=== PATIENT | male | born 1975 | race Caucasian/White ===

== ENCOUNTER 2020-02-18 08:25 | Outpatient (REF) | payer OTHER, SELFPAY ==
[2020-02-18 09:18] LABS: MANUAL DIFF FLAG NO
[2020-02-18 09:33] LABS: Basophils Absolute Auto 0.1 X10*3/uL (0.0-0.2); Basophils Percent Auto 0.6 % (0-2); Eosinophils Absolute Auto 0.2 X10*3/uL (0.0-0.4); Eosinophils Percent Auto 2.7 % (0-4); Hematocrit 47.9 % (42-52); Hemoglobin 16.2 g/dl (14.0-18.0); Imm Gran Abs Auto 0.01 X10*3/uL (0.00-0.03); Imm Gran Pct Auto 0.1 % (0.0-0.4); Lymphocytes Absolute Auto 3.5 X10*3/uL (1.2-4.9); Lymphocytes Percent Auto 44.7 % (20-40); Mean Corpuscular HGB Conc 33.8 g/dl (31.0-36.0); Mean Corpuscular Hemoglobin 29.5 pg (27.0-33.0); Mean Corpuscular Volume 87.1 fL (80-98); Mean Platelet Volume 10.2 fL (9.4-12.4); Monocytes Absolute Auto 0.7 X10*3/uL (0.1-1.2); Neutrophils Absolute Auto 3.4 X10*3/uL (2.0-8.3); Neutrophils Percent Auto 42.9 % (45-73); Platelet Count 203 X10*3/uL (160-400); Red Cell Distribution Width 12.3 % (11.0-16.0); White Blood Count 7.9 X10*3/uL (4.8-10.8)
[2020-02-18 09:43] LABS: Estimated Average Glucose 123 mg/dL; Hemoglobin A1c % 5.9 %
[2020-02-18 09:46] LABS: Alanine Aminotransferase 46 U/L (0-40); Albumin Level 4.3 g/dL (3.5-5.0); Alkaline Phosphatase 60 U/L (39-117); Anion Gap 11 (12-20); Aspartate Amino Transferase 27 U/L (5-37); Bilirubin Total 0.5 mg/dL (0.0-1.0); Blood Urea Nitrogen 13 mg/dL (9-16); C Reactive Protein 0.14 mg/dL (< or = 0.50); Calcium 8.9 mg/dL (8.4-10.2); Carbon Dioxide 28 mmol/L (22-29); Chloride 104 mmol/L (96-108); Cholesterol 212 mg/dL; Estimated Glomerular Filt Rate > 60; Glucose Fasting 109 mg/dL (60-99); HDL Cholesterol 43 mg/dL; LDL Cholesterol Calculated 145 mg/dl; Potassium 4.4 mmol/l (3.3-5.1); Sodium 139 mmol/L (135-145); Total Protein 7.5 g/dL (6.5-8.0); Triglycerides 122 mg/dL
[2020-02-18 10:07] LABS: TSH reflex Free T4 1.12 mIU/mL (0.32-4.0); Vitamin D 25-OH Total 60.8 ng/mL (>30)
== END 2020-02-18 08:26 | disposition home or self-care (01) ==
LOC: HO.LAB 08:25
PROVIDERS: PCP Internal Medicine; Visit Provider Internal Medicine
DX: E78.00 Pure hypercholesterolemia, unspecified (principal); R79.89 Other specified abnormal findings of blood chemistry; R73.01 Impaired fasting glucose; M47.817 Spondylosis without myelopathy or radiculopathy, lumbosacral region; G47.00 Insomnia, unspecified; E55.9 Vitamin D deficiency, unspecified; E66.9 Obesity, unspecified
CPT/HCPCS: 36415; 80053; 80061; 82306; 83036; 84443; 85025; 86140

== ENCOUNTER 2020-05-15 09:04 | Outpatient (REF) | payer OTHER, SELFPAY | END 2020-05-15 09:05 | disposition home or self-care (01) | LOC: HO.LAB 09:04 | PROVIDERS: Visit Provider Internal Medicine | DX: Z20.822 Contact with and (suspected) exposure to COVID-19 (principal) | CPT/HCPCS: 36415; C9803; U0003; U0005 ==

== ENCOUNTER 2020-05-18 08:31 | Outpatient (REF) | payer OTHER, SELFPAY ==
[2020-05-18 09:15] LABS: Estimated Average Glucose 120 mg/dL; Hemoglobin A1c % 5.8 %
[2020-05-18 09:23] LABS: Alanine Aminotransferase 46 U/L (0-40); Albumin Level 4.4 g/dL (3.5-5.0); Alkaline Phosphatase 59 U/L (39-117); Anion Gap 11 (12-20); Aspartate Amino Transferase 26 U/L (5-37); Bilirubin Total 0.6 mg/dL (0.0-1.0); Blood Urea Nitrogen 16 mg/dL (9-16); Calcium 8.9 mg/dL (8.4-10.2); Carbon Dioxide 26 mmol/L (22-29); Chloride 104 mmol/L (96-108); Cholesterol 185 mg/dL; Estimated Glomerular Filt Rate > 60; Glucose Fasting 111 mg/dL (60-99); HDL Cholesterol 40 mg/dL; LDL Cholesterol Calculated 126 mg/dl; Potassium 4.3 mmol/L (3.3-5.1); Sodium 137 mmol/L (135-145); Total Protein 7.3 g/dL (6.5-8.0); Triglycerides 99 mg/dL
[2020-05-18 09:36] LABS: TSH reflex Free T4 1.03 uIU/mL (0.32-4.0); Vitamin D 25-OH Total 59.2 ng/mL (>30)
== END 2020-05-18 08:32 | disposition home or self-care (01) ==
LOC: HO.LAB 08:31
PROVIDERS: PCP Internal Medicine; Visit Provider Internal Medicine
DX: E55.9 Vitamin D deficiency, unspecified (principal); E78.00 Pure hypercholesterolemia, unspecified; R73.01 Impaired fasting glucose; E66.9 Obesity, unspecified; R79.89 Other specified abnormal findings of blood chemistry
CPT/HCPCS: 36415; 80053; 80061; 82306; 83036; 84443

== ENCOUNTER 2020-05-24 22:10 | Emergency (ER) | payer OTHER, SELFPAY ==
[2020-05-24 22:46] VITALS: BP 138/81; PULSE 78; RESP 18; TEMP 37; O2SAT 98; BMI 30.4
--- NOTE | 2020-05-24 22:48 | ED_ITS ---
HPI - Dental/Oral General Chief complaint: Dental/Oral Stated complaint: TOOTH ACHE Time Seen by Provider: 05/24/20 22:39 Source: patient Mode of arrival: ambulatory Limitations: no limitations History of Present Illness HPI Narrative: Patient's history of dental caries status post crown placement years ago was flossing his teeth 2 days ago since then complaining of pain especially on the left lower 1st molar Complaint: tooth pain Location: Tooth # (19) Teeth map: 1. Tender 1st premolar with significant grinding of the teeth crown is in place no gum swelling Onset (ago): day(s) Severity: mild Context: history of dental caries Related Data Home Medications Medication Instructions Recorded Confirmed gabapentin 300 mg capsule 300 mg PO DAILY PRN 02/26/20 02/26/20 Previous Rx's Medication Instructions Recorded amoxicillin-pot clavulanate 1 tab PO BID #20 tab 05/24/20 [Augmentin] tramadol 50 mg PO Q6H PRN #20 tab 05/24/20 Allergies Allergy/AdvReac Type Severity Reaction Status Date / Time penicillin V Allergy Unknown seizures, Verified 05/24/20 22:46 seizure-in childhood Penicillins [PENICILLINS] Allergy Unknown SEIZURE Verified 05/24/20 22:46 Review of Systems Review of Systems: Yes all other systems are reviewed and are negative PMFSH Past Medical History Medical History Cannabis withdrawal Elevated LFTs Facet arthritis of lumbar region Impaired fasting glucose Insomnia Lumbar degenerative disc disease Obesity (BMI 30-39.9) Pure hypercholesterolemia Vitamin D deficiency Surgical History History of appendectomy History of hand surgery History of hemilaminectomy History of hemorrhoidectomy Family History Family History Father Hypertension Heart disease Mother Hypertension Diabetes Maternal Grandfather Leukemia Social History Social History Alcohol intake: current Alcohol intake frequency: holidays/special occasions only Smoking Status: Never smoker Use of substances other than those prescribed or required for medical reasons: Yes Substance Use Type: Marijuana Advance Directives: No Physical Exam Vital Signs: Vital Signs: Last Vital Signs Temp 98.6 F 05/24/20 22:46 Pulse 78 05/24/20 22:46 Resp 18 05/24/20 22:46 BP 138/81 05/24/20 22:46 Pulse Ox 98 05/24/20 22:46 Body Mass Index 30.4 Const: General: comfortable and no acute distress Orientation/consciousness: patient oriented x3 HENMT: Head: Yes normocephalic and Yes atraumatic Ears: TM's normal bila terally Face and sinus: Yes normal facial exam Mouth: Normal oral and palatal mucosa present Teeth and gingiva: gingiva normal, bridge, caries (tooth 19 tender to touch ) and fair dentition Resp: Auscultation: clear to auscultation bilaterally Neuro: General: patient oriented x3 MDM - Dental/Oral MDM Narrative Medical decision making narrative: Patient with uncomplicated dental caries would give him Augmentin which he can take although he is allergic to penicillin, tramadol for pain advised to follow-up with dentist Discharge Plan Discharge Clinical Impression: Dental caries Patient Disposition: Home, Self-Care Instructions: Toothache (ED) Additional Instructions: Follow with dentist. Take antibiotic as advised and pain medication , apply locally Orajel Prescriptions: New tramadol 50 mg tablet 50 mg PO Q6H PRN (Reason: pain) Qty: 20 RF: 0 amoxicillin-pot clavulanate [Augmentin] 875-125 mg tablet 1 tab PO BID Qty: 20 RF: 0 No Action gabapentin 300 mg capsule 300 mg PO DAILY PRNRF: 0
[2020-05-24] MEDS: traMADoL HCL 50 MG TABLET 100 MG PO (23:07)
[2020-05-24] MEDS: Amoxicillin/Potassium Clav 875 MG TABLET PO (23:07)
== END 2020-05-24 23:26 | disposition home or self-care (01) ==
PROVIDERS: Emergency Provider Internal Medicine; PCP Internal Medicine
DX: K02.9 Dental caries, unspecified (principal); K08.89 Other specified disorders of teeth and supporting structures; F12.90 Cannabis use, unspecified, uncomplicated
CPT/HCPCS: 99283; 99284

== ENCOUNTER 2020-09-15 07:38 | Outpatient (REF) | payer OTHER, SELFPAY ==
[2020-09-15 09:24] LABS: Estimated Average Glucose 123 mg/dL; Hemoglobin A1c % 5.9 %
== END 2020-09-15 07:39 | disposition home or self-care (01) ==
LOC: HO.LAB 07:38
PROVIDERS: PCP Internal Medicine; Visit Provider Internal Medicine
DX: R73.01 Impaired fasting glucose (principal)
CPT/HCPCS: 36415; 83036

== ENCOUNTER 2021-05-04 08:00 | Outpatient (REF) | payer OTHER, SELFPAY ==
[2021-05-04 08:13] LABS: MANUAL DIFF FLAG NO
[2021-05-04 08:31] LABS: Basophils Percent Auto 0.6 % (0-2); Eosinophils Absolute Auto 0.2 X10*3/uL (0.0-0.4); Eosinophils Percent Auto 2.8 % (0-4); Hematocrit 49.3 % (42.0-52.0); Hemoglobin 16.5 g/dl (14.0-18.0); Imm Gran Abs Auto 0.02 X10*3/uL (0.00-0.03); Imm Gran Pct Auto 0.3 % (0.0-0.4); Lymphocytes Absolute Auto 2.9 X10*3/uL (1.2-4.9); Lymphocytes Percent Auto 40.6 % (20-40); Mean Corpuscular HGB Conc 33.5 g/dl (31.0-36.0); Mean Corpuscular Hemoglobin 29.7 pg (27.0-33.0); Mean Corpuscular Volume 88.8 fL (80.0-98.0); Mean Platelet Volume 10.3 fL (9.4-12.4); Monocytes Absolute Auto 0.5 X10*3/uL (0.1-1.2); Monocytes Percent Auto 7.4 % (2-11); Neutrophils Absolute Auto 3.5 x10*3/uL (2.0-8.3); Neutrophils Percent Auto 48.3 % (45-73); Platelet Count 186 X10*3/uL (160-400); Red Blood Count 5.55 X10*6/uL (4.60-5.80); Red Cell Distribution Width 12.6 % (11.0-16.0); White Blood Count 7.2 X10*3/uL (4.8-10.8)
[2021-05-04 08:43] LABS: Estimated Average Glucose 123 mg/dL; Hemoglobin A1c % 5.9 %
[2021-05-04 09:07] LABS: Alanine Aminotransferase 36 U/L (0-40); Albumin Level 4.5 g/dL (3.5-5.0); Alkaline Phosphatase 55 U/L (39-117); Anion Gap 12 (12-20); Aspartate Amino Transferase 26 U/L (5-37); Bilirubin Total 0.7 mg/dL (0.0-1.0); Blood Urea Nitrogen 15 mg/dL (9-16); Calcium 9.9 mg/dL (8.4-10.2); Carbon Dioxide 29 mmol/L (22-29); Chloride 102 mmol/L (96-108); Cholesterol 243 mg/dL; Estimated Glomerular Filt Rate > 60; Glucose Fasting 106 mg/dL (60-99); HDL Cholesterol 48 mg/dL; LDL Cholesterol Calculated 168 mg/dl; Potassium 4.6 mmol/L (3.3-5.1); Sodium 138 mmol/L (135-145); Total Protein 7.9 g/dL (6.5-8.0); Triglycerides 139 mg/dL
[2021-05-04 09:30] LABS: TSH reflex Free T4 0.93 uIU/mL (0.32-4.0); Vitamin D 25-OH Total 78.4 ng/mL (>30)
[2021-05-04 09:32] LABS: Appearance Urine CLEAR; Color Urine YELLOW; Glucose Urine UA NEG (NEG); Leukocyte Esterase Urine NEG (NEG); Nitrite Urine NEG (NEG); Specific Gravity - Urine 1.025 (1.005-1.025); UACC Culture Trigger NO; Urine Blood TRACE (NEG); Urine Ketones NEG (NEG); Urine Protein NEG (NEG-TRACE)
[2021-05-04 09:49] LABS: RBC Urine 0-2 /HPF (0); WBC Urine 0 /HPF (0-4)
== END 2021-05-04 08:01 | disposition home or self-care (01) ==
LOC: HO.LAB 08:00
PROVIDERS: PCP Internal Medicine; Visit Provider Internal Medicine
DX: E55.9 Vitamin D deficiency, unspecified (principal); E78.00 Pure hypercholesterolemia, unspecified; I10 Essential (primary) hypertension; R73.01 Impaired fasting glucose
CPT/HCPCS: 36415; 80053; 80061; 81001; 82306; 83036; 84443; 85025

== ENCOUNTER 2021-08-05 07:57 | Outpatient (REF) | payer OTHER, SELFPAY ==
[2021-08-05 08:23] LABS: MANUAL DIFF FLAG NO
[2021-08-05 08:34] LABS: Basophils Percent Auto 0.5 % (0-2); Eosinophils Absolute Auto 0.1 X10*3/uL (0.0-0.4); Eosinophils Percent Auto 1.9 % (0-4); Hematocrit 47.3 % (42.0-52.0); Hemoglobin 16.1 g/dl (14.0-18.0); Imm Gran Abs Auto 0.02 X10*3/uL (0.00-0.03); Imm Gran Pct Auto 0.3 % (0.0-0.4); Lymphocytes Percent Auto 40.7 % (20-40); Mean Corpuscular Volume 88.2 fL (80.0-98.0); Monocytes Absolute Auto 0.5 X10*3/uL (0.1-1.2); Monocytes Percent Auto 7.4 % (2-11); Neutrophils Absolute Auto 3.6 x10*3/uL (2.0-8.3); Neutrophils Percent Auto 49.2 % (45-73); Platelet Count 184 X10*3/uL (160-400); Red Blood Count 5.36 X10*6/uL (4.60-5.80); Red Cell Distribution Width 12.5 % (11.0-16.0); White Blood Count 7.3 X10*3/uL (4.8-10.8)
[2021-08-05 08:43] LABS: Estimated Average Glucose 120 mg/dL; Hemoglobin A1c % 5.8 %
[2021-08-05 08:58] LABS: Alanine Aminotransferase 38 U/L (0-40); Albumin Level 4.3 g/dL (3.5-5.0); Alkaline Phosphatase 52 U/L (39-117); Anion Gap 11 (12-20); Aspartate Amino Transferase 25 U/L (5-37); Bilirubin Total 0.4 mg/dL (0.0-1.0); Blood Urea Nitrogen 12 mg/dL (9-16); Calcium 9.5 mg/dL (8.4-10.2); Carbon Dioxide 27 mmol/L (22-29); Chloride 104 mmol/L (96-108); Cholesterol 208 mg/dL; Estimated Glomerular Filt Rate > 60; Glucose Fasting 110 mg/dL (60-99); HDL Cholesterol 47 mg/dL; LDL Cholesterol Calculated 146 mg/dl; Potassium 4.7 mmol/L (3.3-5.1); Sodium 137 mmol/L (135-145); Total Protein 7.5 g/dL (6.5-8.0); Triglycerides 76 mg/dL
[2021-08-05 09:21] LABS: TSH reflex Free T4 0.84 uIU/mL (0.32-4.0); Vitamin D 25-OH Total 68.4 ng/mL (>30)
[2021-08-05 10:17] LABS: Appearance Urine HAZY; Color Urine YELLOW; Glucose Urine UA NEG (NEG); Leukocyte Esterase Urine NEG (NEG); Nitrite Urine NEG (NEG); Specific Gravity - Urine 1.025 (1.005-1.025); Urine Blood NEG (NEG); Urine Ketones NEG (NEG); Urine Protein NEG (NEG-TRACE)
== END 2021-08-05 07:58 | disposition home or self-care (01) ==
LOC: HO.LAB 07:57
PROVIDERS: PCP Internal Medicine; Visit Provider Internal Medicine
DX: E78.00 Pure hypercholesterolemia, unspecified (principal); I10 Essential (primary) hypertension; E55.9 Vitamin D deficiency, unspecified; R73.01 Impaired fasting glucose
CPT/HCPCS: 36415; 80053; 80061; 81003; 82306; 83036; 84443; 85025

== ENCOUNTER 2021-11-29 08:30 | Outpatient (REF) | payer OTHER, SELFPAY ==
[2021-11-29 08:40] LABS: MANUAL DIFF FLAG NO
[2021-11-29 09:12] LABS: Basophils Absolute Auto 0.1 X10*3/uL (0.0-0.2); Basophils Percent Auto 0.9 % (0-2); Eosinophils Absolute Auto 0.2 X10*3/uL (0.0-0.4); Eosinophils Percent Auto 2.7 % (0-4); Hematocrit 47.3 % (42.0-52.0); Hemoglobin 15.7 g/dl (14.0-18.0); Imm Gran Abs Auto 0.02 X10*3/uL (0.00-0.03); Imm Gran Pct Auto 0.3 % (0.0-0.4); Lymphocytes Absolute Auto 2.7 X10*3/uL (1.2-4.9); Lymphocytes Percent Auto 41.1 % (20-40); Mean Corpuscular HGB Conc 33.2 g/dl (31.0-36.0); Mean Corpuscular Hemoglobin 29.4 pg (27.0-33.0); Mean Corpuscular Volume 88.6 fL (80.0-98.0); Mean Platelet Volume 10.4 fL (9.4-12.4); Monocytes Absolute Auto 0.7 X10*3/uL (0.1-1.2); Platelet Count 154 X10*3/uL (160-400); Red Blood Count 5.34 X10*6/uL (4.60-5.80); Red Cell Distribution Width 12.8 % (11.0-16.0); White Blood Count 6.6 X10*3/uL (4.8-10.8)
[2021-11-29 09:18] LABS: Estimated Average Glucose 117 mg/dL; Hemoglobin A1C 155.3739 umol/L; Hemoglobin A1c % 5.7 %
[2021-11-29 09:35] LABS: Appearance Urine Clear; Color Urine Yellow; Glucose Urine UA Negative (Negative); Leukocyte Esterase Urine Negative (Negative); Nitrite Urine Negative (Negative); Specific Gravity - Urine 1.025 (1.005-1.025); Urine Blood Negative (Negative); Urine Ketones Negative (Negative); Urine Protein Negative (Neg-Trace)
[2021-11-29 09:45] LABS: Alanine Aminotransferase 34 U/L (0-40); Albumin Level 4.4 g/dL (3.5-5.0); Alkaline Phosphatase 51 U/L (39-117); Anion Gap 15 (12-20); Aspartate Amino Transferase 23 U/L (5-37); Bilirubin Total 0.3 mg/dL (0.0-1.0); Blood Urea Nitrogen 15 mg/dL (9-16); Calcium 9.2 mg/dL (8.4-10.2); Carbon Dioxide 26 mmol/L (22-29); Chloride 105 mmol/L (96-108); Cholesterol 206 mg/dL; Estimated Glomerular Filt Rate > 60; Glucose Fasting 98 mg/dL (60-99); HDL Cholesterol 46 mg/dL; LDL Cholesterol Calculated 145 mg/dl; Potassium 4.9 mmol/L (3.3-5.1); Sodium 141 mmol/L (135-145); Total Protein 7.3 g/dL (6.5-8.0); Triglycerides 75 mg/dL
[2021-11-29 09:58] LABS: TSH reflex Free T4 0.82 uIU/mL (0.32-4.0)
[2021-11-29 09:59] LABS: Creatinine Urine 193.64 mg/dL
== END 2021-11-29 08:31 | disposition home or self-care (01) ==
LOC: HO.LAB 08:30
PROVIDERS: PCP Internal Medicine; Visit Provider Internal Medicine
DX: E55.9 Vitamin D deficiency, unspecified (principal); I10 Essential (primary) hypertension; E78.00 Pure hypercholesterolemia, unspecified; E11.9 Type 2 diabetes mellitus without complications
CPT/HCPCS: 36415; 80053; 80061; 81003; 82043; 82306; 83036; 84443; 85025

== ENCOUNTER 2022-02-21 07:45 | Outpatient (REF) | payer OTHER, SELFPAY ==
[2022-02-21 07:53] LABS: MANUAL DIFF FLAG NO
[2022-02-21 08:19] LABS: Basophils Absolute Auto 0.1 X10*3/uL (0.0-0.2); Basophils Percent Auto 0.9 % (0-2); Eosinophils Absolute Auto 0.2 X10*3/uL (0.0-0.4); Eosinophils Percent Auto 2.1 % (0-4); Hematocrit 48.1 % (42.0-52.0); Imm Gran Abs Auto 0.03 X10*3/uL (0.00-0.03); Imm Gran Pct Auto 0.4 % (0.0-0.4); Lymphocytes Percent Auto 39.7 % (20-40); Mean Corpuscular HGB Conc 33.3 g/dl (31.0-36.0); Mean Corpuscular Hemoglobin 29.4 pg (27.0-33.0); Mean Corpuscular Volume 88.3 fL (80.0-98.0); Mean Platelet Volume 10.4 fL (9.4-12.4); Monocytes Absolute Auto 0.5 X10*3/uL (0.1-1.2); Monocytes Percent Auto 6.7 % (2-11); Neutrophils Absolute Auto 3.8 x10*3/uL (2.0-8.3); Neutrophils Percent Auto 50.2 % (45-73); Platelet Count 205 X10*3/uL (160-400); Red Blood Count 5.45 X10*6/uL (4.60-5.80); Red Cell Distribution Width 12.4 % (11.0-16.0); White Blood Count 7.6 X10*3/uL (4.8-10.8)
[2022-02-21 09:33] LABS: Alanine Aminotransferase 29 U/L (0-40); Albumin Level 4.4 g/dL (3.5-5.0); Alkaline Phosphatase 58 U/L (39-117); Anion Gap 12 (12-20); Aspartate Amino Transferase 21 U/L (5-37); Bilirubin Total 0.5 mg/dL (0.0-1.0); Blood Urea Nitrogen 13 mg/dL (9-16); Calcium 9.3 mg/dL (8.4-10.2); Carbon Dioxide 28 mmol/L (22-29); Chloride 104 mmol/L (96-108); Cholesterol 200 mg/dL; Estimated Glomerular Filt Rate > 60; Glucose Fasting 104 mg/dL (60-99); HDL Cholesterol 46 mg/dL; LDL Cholesterol Calculated 140 mg/dl; Potassium 4.4 mmol/L (3.3-5.1); Sodium 140 mmol/L (135-145); TSH reflex Free T4 0.78 uIU/mL (0.32-4.0); Total Protein 7.4 g/dL (6.5-8.0); Triglycerides 72 mg/dL; Vitamin D 25-OH Total 53.9 ng/mL (>30)
== END 2022-02-21 07:46 | disposition home or self-care (01) ==
LOC: HO.LAB 07:45
PROVIDERS: PCP Internal Medicine; Visit Provider Internal Medicine
DX: E78.00 Pure hypercholesterolemia, unspecified (principal); E55.9 Vitamin D deficiency, unspecified; I10 Essential (primary) hypertension
CPT/HCPCS: 36415; 80053; 80061; 82306; 84443; 85025

== ENCOUNTER 2022-06-02 07:03 | Outpatient (REF) | payer OTHER, SELFPAY ==
[2022-06-02 07:11] LABS: MANUAL DIFF FLAG NO
[2022-06-02 07:27] LABS: Appearance Urine Clear; Color Urine Yellow; Glucose Urine UA Negative (Negative); Leukocyte Esterase Urine Negative (Negative); Nitrite Urine Negative (Negative); Urine Blood Negative (Negative); Urine Ketones Negative (Negative); Urine Protein Negative (Neg-Trace)
[2022-06-02 07:30] LABS: Basophils Percent Auto 0.6 % (0-2); Eosinophils Absolute Auto 0.2 X10*3/uL (0.0-0.4); Eosinophils Percent Auto 2.1 % (0-4); Hematocrit 45.9 % (42.0-52.0); Hemoglobin 15.7 g/dl (14.0-18.0); Imm Gran Abs Auto 0.02 X10*3/uL (0.00-0.03); Imm Gran Pct Auto 0.3 % (0.0-0.4); Lymphocytes Absolute Auto 3.1 X10*3/uL (1.2-4.9); Lymphocytes Percent Auto 43.3 % (20-40); Mean Corpuscular HGB Conc 34.2 g/dl (31.0-36.0); Mean Corpuscular Hemoglobin 30.1 pg (27.0-33.0); Mean Corpuscular Volume 87.9 fL (80.0-98.0); Monocytes Absolute Auto 0.6 X10*3/uL (0.1-1.2); Neutrophils Absolute Auto 3.3 x10*3/uL (2.0-8.3); Neutrophils Percent Auto 45.7 % (45-73); Platelet Count 180 X10*3/uL (160-400); Red Blood Count 5.22 X10*6/uL (4.60-5.80); Red Cell Distribution Width 12.4 % (11.0-16.0); White Blood Count 7.2 X10*3/uL (4.8-10.8)
[2022-06-02 07:36] LABS: Estimated Average Glucose 117 mg/dL; Hemoglobin A1c % 5.7 %
[2022-06-02 07:54] LABS: Alanine Aminotransferase 28 U/L (0-40); Albumin Level 4.3 g/dL (3.5-5.0); Alkaline Phosphatase 50 U/L (39-117); Anion Gap 12 (12-20); Aspartate Amino Transferase 23 U/L (5-37); Bilirubin Total 0.5 mg/dL (0.0-1.0); Blood Urea Nitrogen 17 mg/dL (9-16); Carbon Dioxide 28 mmol/L (22-29); Chloride 103 mmol/L (96-108); Cholesterol 187 mg/dL; Estimated Glomerular Filt Rate > 60; Glucose Fasting 96 mg/dL (60-99); HDL Cholesterol 44 mg/dL; LDL Cholesterol Calculated 129 mg/dl; Potassium 4.3 mmol/L (3.3-5.1); Sodium 139 mmol/L (135-145); Triglycerides 70 mg/dL
[2022-06-02 08:08] LABS: TSH reflex Free T4 0.93 uIU/mL (0.32-4.0); Vitamin D 25-OH Total 55.6 ng/mL (>30)
== END 2022-06-02 07:04 | disposition home or self-care (01) ==
LOC: HO.LAB 07:03
PROVIDERS: PCP Internal Medicine; Visit Provider Internal Medicine
DX: E78.00 Pure hypercholesterolemia, unspecified (principal); R73.01 Impaired fasting glucose; E55.9 Vitamin D deficiency, unspecified; R30.0 Dysuria; I10 Essential (primary) hypertension
CPT/HCPCS: 36415; 80053; 80061; 81003; 82306; 83036; 84443; 85025

== ENCOUNTER 2022-09-30 06:54 | Outpatient (REF) | payer OTHER, SELFPAY ==
[2022-09-30 07:19] LABS: MANUAL DIFF FLAG NO
[2022-09-30 07:34] LABS: Basophils Absolute Auto 0.1 X10*3/uL (0.0-0.2); Basophils Percent Auto 0.7 % (0-2); Eosinophils Absolute Auto 0.1 X10*3/uL (0.0-0.4); Eosinophils Percent Auto 1.3 % (0-4); Hematocrit 47.8 % (42.0-52.0); Imm Gran Abs Auto 0.02 X10*3/uL (0.00-0.03); Imm Gran Pct Auto 0.3 % (0.0-0.4); Lymphocytes Absolute Auto 2.6 X10*3/uL (1.2-4.9); Lymphocytes Percent Auto 37.5 % (20-40); Mean Corpuscular HGB Conc 33.5 g/dl (31.0-36.0); Mean Corpuscular Hemoglobin 29.7 pg (27.0-33.0); Mean Corpuscular Volume 88.8 fL (80.0-98.0); Mean Platelet Volume 9.8 fL (9.4-12.4); Monocytes Absolute Auto 0.5 X10*3/uL (0.1-1.2); Monocytes Percent Auto 7.2 % (2-11); Neutrophils Absolute Auto 3.7 x10*3/uL (2.0-8.3); Platelet Count 203 X10*3/uL (160-400); Red Blood Count 5.38 X10*6/uL (4.60-5.80); Red Cell Distribution Width 12.4 % (11.0-16.0); White Blood Count 6.9 X10*3/uL (4.8-10.8)
[2022-09-30 07:45] LABS: Estimated Average Glucose 108 mg/dL; Hemoglobin A1c % 5.4 %
[2022-09-30 08:25] LABS: Appearance Urine Clear; Color Urine Yellow; Glucose Urine UA Negative (Negative); Leukocyte Esterase Urine Negative (Negative); Nitrite Urine Negative (Negative); Specific Gravity - Urine 1.015 (1.005-1.025); Urine Blood Negative (Negative); Urine Ketones Negative (Negative); Urine Protein Negative (Neg-Trace)
[2022-09-30 08:34] LABS: Alanine Aminotransferase 29 U/L (0-40); Albumin Level 4.2 g/dL (3.5-5.0); Alkaline Phosphatase 54 U/L (39-117); Anion Gap 15 (12-20); Aspartate Amino Transferase 22 U/L (5-37); Bilirubin Total 0.5 mg/dL (0.0-1.0); Blood Urea Nitrogen 12 mg/dL (9-16); Calcium 9.4 mg/dL (8.4-10.2); Carbon Dioxide 24 mmol/L (22-29); Chloride 102 mmol/L (96-108); Cholesterol 196 mg/dL; Estimated Glomerular Filt Rate > 60; Glucose Fasting 109 mg/dL (60-99); HDL Cholesterol 46 mg/dL; LDL Cholesterol Calculated 127 mg/dl; Potassium 4.3 mmol/L (3.3-5.1); Sodium 137 mmol/L (135-145); Total Protein 7.5 g/dL (6.5-8.0); Triglycerides 116 mg/dL
[2022-09-30 08:37] LABS: Vitamin D 25-OH Total 61.9 ng/mL (>30)
== END 2022-09-30 06:55 | disposition home or self-care (01) ==
LOC: HO.LAB 06:54
PROVIDERS: PCP Internal Medicine; Visit Provider Internal Medicine
DX: I10 Essential (primary) hypertension (principal); E78.00 Pure hypercholesterolemia, unspecified; R79.89 Other specified abnormal findings of blood chemistry; R73.01 Impaired fasting glucose; R30.0 Dysuria; E55.9 Vitamin D deficiency, unspecified
CPT/HCPCS: 36415; 80053; 80061; 81003; 82306; 83036; 85025

== ENCOUNTER 2022-10-07 09:13 | Outpatient (AMB) | payer OTHER, SELFPAY ==
--- NOTE | 2022-10-07 09:14 | A.OFFPC_ITS ---
Vital Signs 10/07/22 09:15 Height 5 ft 8 in Weight 198 lb 4 oz BMI 30.1 BP 122/80 Blood Pressure Location Lt brachial Position Sitting Pulse 80 Pulse Source Pulse Oximeter Pulse Oximetry (%) 97 Oxygen Delivery Method Room Air Intake Visit Reasons: hyperlipidemia, IFG, lumbar DDD Warp Yarn Sorter Required: No Accompanied by: Self / Same As Patient Allergies penicillin V Allergy (Unknown, Verified 10/07/22 10:01) seizures, seizure-in childhood Penicillins [PENICILLINS] Allergy (Unknown, Verified 10/07/22 10:01) SEIZURE Medication List - Last Reconciled 10/07/22 by Johnnie Miller MD baclofen 20 mg PO BEDTIME 90 days gabapentin 300 mg PO BEDTIME 90 days tramadol 50 mg PO Q6H PRN Tobacco use date assessed: 10/07/22 Dental Screening Dental Screen Date: 10/07/22 Did you have a dental visit in the last 12 months?: No Did you have a dental problem in the last 6 months where you did not have access to dental care?: No Was dental information given to patient?: No HPI hyperlipidemia, IFG, lumbar DDD HPI Details Patient comes in today for his follow up visit States that he feels okay He denies any headaches or dizziness Denies any chest pains, no SOB No nausea/vomiting, no abdominal pain No change in bowel habits noted States that his low back pain and joint pains remain adequately controlled on his current Rx Had his follow up labs done last week - to discuss his results [facility] Medical History Cannabis withdrawal Elevated LFTs Facet arthritis of lumbar region Impaired fasting glucose Insomnia Lumbar degenerative disc disease Obesity (BMI 30-39.9) Pure hypercholesterolemia Vitamin D deficiency Surgical History History of appendectomy History of hand surgery History of hemilaminectomy History of hemorrhoidectomy Family History Father Hypertension Heart disease Mother Hypertension Diabetes Maternal Grandfather Leukemia Other Mental health problem Social History Housing: House Alcohol intake: current Alcohol intake frequency: holidays/special occasions only Patient Tobacco Use Status: Never used Tobacco e-Cigarette/Vaping Use: Never Used Second Hand Smoke Exposure: Yes Substance Use Type: Marijuana service: No Current occupational status: disabled Cognitive needs: No Hearing needs: No Vision needs: Yes Questionnaire PHQ-9 Over the last 2 weeks, how often have you been bothered by any of the following problems? 1. Little interest or pleasure in doing things: not at all 2. Feeling down, depressed, or hopeless: not at all 3. Trouble falling or staying asleep, or sleeping too much: not at all 4. Feeling tired or having little energy: not at all 5. Poor appetite or overeating: not at all 6. Feeling bad about yourself - or that you are a failure or have let yourself or your family down: not at all 7. Trouble concentrating on things, such as reading the newspaper or watching television: not at all 8. Moving or speaking so slowly that other people could have noticed. Or the opposite - being so fidgety or restless that you have been moving around a lot more than usual: not at all 9. Thoughts that you would be better off or of hurting yourself in some way: not at all Total score: 0 Depression Screening Interpretation: Negative 05193 - PHQ-9 Billing: Yes Source: Developed by Drs. Elías Davis, Kailee Muhammad, Kike Thurman and colleagues, with an educational cr from [employer]. Thrive Questionnaire Date Thrive assessed: 10/07/22 I am a: Patient What is your living situation today?: I have a steady place to live Within the past 12 months, did the food you bought not last and you didn't have the money to get more?: Never true Within the past 12 months, did you worry whether your food would run out before you got money to buy more?: Never true Do you have trouble paying for medicines?: No Do you have trouble getting transportation to medical appointments?: No Do you have trouble paying your heating and electricity bill?: No Do you have trouble taking care of your child, family member or friend?: No Do you have trouble with day-to-day activities such as bathing, preparing meals, shopping, managing finances, etc.?: No Are you currently unemployed and looking for a job?: No Are you interested in more education?: No Please select the resources that you would like help with: None Currently or been in a relationship where the following occur: no concerns reported AUDIT C Alcohol Use Questionnaire (AUDIT-C) 1. How often do you have a drink containing alcohol?: Monthly or less 2. How many drinks containing alcohol do you have on a typical day when you are drinking?: 1 or 2 3. How often do you have six or more drinks on one occasion?: Never Total Score: 1 Score Reviewed/Action Taken: Yes THERESA-7 AMB Questionnaire THERESA-7 Date THERESA - 7 assessed: 10/07/22 Feeling nervous, anxious, or on edge: 0 = Not at all Not being able to stop or control worryin = Not at all Worrying too much about different things: 0 = Not at all Trouble relaxin = Not at all Being so restless that it is hard to sit still: 0 = Not at all Becoming easily annoyed or irritable: 0 = Not at all Feeling afraid as if something awful might happen: 0 = Not at all Total THERESA-7 score (0-4 normal; 5-9 mild; 10-14 moderate; 15-21 severe): 0 Source: Developed by Drs. Elías Davis, Kailee Muhammad, Kike Thurman and colleagues, with an educational cr from [employer]. Review of Systems Const Denies fatigue, Denies fever(s) and Denies headache(s) ENT Denies dysphagia, Denies dizziness, Denies otalgia, Denies headache(s), Denies odynophagia and Denies sore throat Card Denies chest pain, Denies palpitations and Denies dyspnea Resp Denies cough and Denies dyspnea GI Denies abdominal pain, Denies constipation, Denies dysphagia, Denies heartburn, Denies diarrhea, Denies nausea, Denies odynophagia and Denies vomiting Denies dysuria, Denies nocturia and Denies urinary frequency Musc Reports back pain (over the lower back - chronic) Neuro Denies dizziness and Denies headache(s) Endo Denies fatigue and Denies palpitations Physical exam (Primary Care) Vital Signs: Last Vital Signs Pulse 80 10/07/22 09:15 BP 122/80 10/07/22 09:15 Pulse Ox 97 10/07/22 09:15 Oxygen Delivery Method Room Air 10/07/22 09:15 BMI result Body Mass Index 30.1 Tobacco/Smoking Status: Tobacco use Status Tobacco use date assessed 10/07/22 10/07/22 09:19 Patient Tobacco Use Status Never used Tobacco 10/07/22 09:19 e-Cigarette/Vaping Use Never Used 10/07/22 09:19 PHQ-9: PHQ-9 Score PHQ-9: Total score 0 10/07/22 09:19 Depression Screening Interpretation: Negative Thrive Assessment: Date of Thrive Assessment Date Thrive assessed 10/07/22 10/07/22 09:19 Currently or been in a relationship where the following occur: no concerns reported Const General: no acute distress and alert HENMT Ears: TM's normal bilaterally and EAC's normal Throat: Yes posterior oropharynx normal and Yes tonsils normal (no TP congestion noted) Neck Neck: Yes no lymphadenopathy and Yes supple Resp Auscultation: clear to auscultation bilaterally, no rales and no wheezes Cardio Rate: regular rate Rhythm: regular rhythm Heart sounds: no murmurs GI Palpation (GI): Soft to palpation and nontender Auscultation: normal bowel sounds Back/Spine/Pelvis Thoracic/Lumbar Spine: lumbar spinal tenderness Extrem General: Yes no clubbing, cyanosis or edema Results Reviewed Results Reviewed: Laboratory Tests 06/02/22 09/30/22 09/30/22 07:09 07:15 07:17 WBC 6.9 Hgb 16.0 Hct 47.8 Plt Count 203 Sodium Potassium Creatinine Estimated GFR Fasting Glucose Hemoglobin A1c % Calcium AST ALT Triglycerides Cholesterol LDL Cholesterol, Calc HDL Cholesterol 25-OH Vitamin D Total TSH 0.93 Ur Specific [place] 1.015 Urine Protein Negative Urine Glucose (UA) Negative Urine Blood Negative 09/30/22 09/30/22 07:17 07:17 WBC Hgb Hct Plt Count Sodium 137 Potassium 4.3 Creatinine 0.90 Estimated GFR > 60 Fasting Glucose 109 H Hemoglobin A1c % 5.4 Calcium 9.4 AST 22 ALT 29 Triglycerides 116 Cholesterol 196 LDL Cholesterol, Calc 127 HDL Cholesterol 46 25-OH Vitamin D Total 61.9 TSH Ur Specific [place] Urine Protein Urine Glucose (UA) Urine Blood Assessment and Plan Assessment & Plan (1) Pure hypercholesterolemia: Code(s): E78.00 - Pure hypercholesterolemia, unspecified Plan: Results of his labs done last week reviewed and discussed with patient - lipids have improved again slightly from previous Reinforced low cholesterol diet Patient would like to continue with diet modification and prefers not to take cholesterol-lowering medications if he can avoid them Will recheck his labs and fasting lipids in 4 months for follow up (2) Impaired fasting glucose: Code(s): R73.01 - Impaired fasting glucose Plan: HgbA1c remains normal at 5.4% on his labs done last week; was previously at 5.7% Reinforced low calorie diet/exercise as tolerated (3) Elevated LFTs: Code(s): R79.89 - Other specified abnormal findings of blood chemistry Plan: Improved; LFTs have remained normal on his recent labs - was most likely due to fatty liver changes related to his weight Reinforced low calorie diet/exercise as tolerated Will continue to monitor his LFTs regularly (4) Vitamin D deficiency: Code(s): E55.9 - Vitamin D deficiency, unspecified Plan: Corrected ; continue OTC Vitamin D3 1000 units QOD (5) Facet arthritis of lumbar region: Code(s): M47.816 - Spondylosis without myelopathy or radiculopathy, lumbar region Plan: Reinforced activity and weight-lifting restrictions Follow up with [facility] as scheduled Has been reportedly advised that lumbar spine facet injections are no longer an option for him and he was recommended the option of a spinal cord stimulator, which patient is considering Continue Gabapentin 300 mg Q HS, Tramadol 50 mg every 6 hours PRN for pain and Baclofen 20 mg Q HS PRN (6) Obesity (BMI 30-39.9): Code(s): E66.9 - Obesity, unspecified Plan: Reinforced diet/exercise as tolerated/lose weight Plan Follow up in 4 months Orders: Orders Comprehensive [place]. Panel Fast 4 Months E78.00 - Pure hypercholesterolemia, unspecified Hemoglobin A1c 4 Months E11.9 - Type 2 diabetes mellitus without complications Lipid Panel 4 Months E78.00 - Pure hypercholesterolemia, unspecified TSH reflex Free T4 4 Months E78.00 - Pure hypercholesterolemia, unspecified Vitamin D 25-OH Total 4 Months E55.9 - Vitamin D deficiency, unspecified Coding Level of Care Code Est Pt Level 4 (86362) Diagnoses Pure hypercholesterolemia E78.00 Impaired fasting glucose R73.01 Elevated LFTs R79.89 Vitamin D deficiency E55.9 Facet arthritis of lumbar region M47.816 Obesity (BMI 30-39.9) E66.9
[2022-10-07 09:15] VITALS: BP 122/80; PULSE 80; O2SAT 97; BMI 30.1
== END 2022-10-07 10:05 | disposition home or self-care (01) ==
PROVIDERS: Visit Provider Internal Medicine
DX: E78.00 Pure hypercholesterolemia, unspecified (principal); E55.9 Vitamin D deficiency, unspecified; E66.9 Obesity, unspecified; Z68.30 Body mass index [BMI] 30.0-30.9, adult; R73.01 Impaired fasting glucose; R79.89 Other specified abnormal findings of blood chemistry; M47.816 Spondylosis without myelopathy or radiculopathy, lumbar region
CPT/HCPCS: 99214

== ENCOUNTER 2023-02-06 06:39 | Outpatient (REF) | payer OTHER, SELFPAY ==
[2023-02-06 07:52] LABS: Estimated Average Glucose 114 mg/dL; Hemoglobin A1C 152.2527 umol/L; Hemoglobin A1c % 5.6 % (<6.0)
[2023-02-06 08:16] LABS: Alanine Aminotransferase 26 U/L (0-40); Albumin Level 4.3 g/dL (3.5-5.0); Alkaline Phosphatase 51 U/L (39-117); Anion Gap 12 (12-20); Aspartate Amino Transferase 22 U/L (5-37); Bilirubin Total 0.3 mg/dL (0.0-1.0); Blood Urea Nitrogen 15 mg/dL (9-16); Calcium 9.4 mg/dL (8.4-10.2); Carbon Dioxide 28 mmol/L (22-29); Chloride 106 mmol/L (96-108); Cholesterol 193 mg/dL (<200); Estimated Glomerular Filt Rate > 60; Glucose Fasting 108 mg/dL (60-99); HDL Cholesterol 50 mg/dL (>40); LDL Cholesterol Calculated 128 mg/dL (<100); Potassium 4.7 mmol/L (3.3-5.1); Sodium 141 mmol/L (135-145); Total Protein 7.6 g/dL (6.5-8.0); Triglycerides 75 mg/dL (<150)
[2023-02-06 08:33] LABS: Vitamin D 25-OH Total 49.8 ng/mL (>30)
== END 2023-02-06 06:40 | disposition home or self-care (01) ==
LOC: HO.LAB 06:39
PROVIDERS: PCP Internal Medicine; Visit Provider Internal Medicine
DX: E55.9 Vitamin D deficiency, unspecified (principal); E11.9 Type 2 diabetes mellitus without complications; E78.00 Pure hypercholesterolemia, unspecified
CPT/HCPCS: 36415; 80053; 80061; 82306; 83036; 84443

== ENCOUNTER 2023-04-07 12:30 | Outpatient (AMB) | payer OTHER, SELFPAY ==
[2023-04-07 12:34] VITALS: BP 130/86; PULSE 88; O2SAT 98; BMI 26.5
--- NOTE | 2023-04-07 12:34 | A.OFFPC_ITS ---
Vital Signs 04/07/23 12:34 Height 5 ft 8 in Weight 174 lb BMI 26.5 BP 130/86 Blood Pressure Location Lt brachial Position Sitting Pulse 88 Pulse Source Pulse Oximeter Pulse Oximetry (%) 98 Oxygen Delivery Method Room Air Intake Visit Reasons: follow up labs Student Records Specialist Required: No Accompanied by: Self / Same As Patient Allergies penicillin V Allergy (Unknown, Verified 04/07/23 13:22) seizures, seizure-in childhood Penicillins [PENICILLINS] Allergy (Unknown, Verified 04/07/23 13:22) SEIZURE Medication List - Last Reconciled 04/07/23 by Johnnie Miller MD baclofen 20 mg PO BEDTIME 90 days gabapentin 300 mg PO BEDTIME 90 days tramadol 50 mg PO Q6H PRN Tobacco use date assessed: 04/07/23 Dental Screening Dental Screen Date: 04/07/23 Did you have a dental visit in the last 12 months?: No Did you have a dental problem in the last 6 months where you did not have access to dental care?: No Was dental information given to patient?: No HPI follow up labs HPI Details Patient comes in today for his follow up visit States that he feels okay He denies any headaches or dizziness Denies any chest pains, no SOB No nausea/vomiting, no abdominal pain No change in bowel habits noted Would like to know how he did on his labs done back in February 2023 Would also like to have a Cologuard test ordered States that he has never had a screening colonoscopy done in the past and as far as he is aware, has no increased risk of colon cancer in his family Adds that he has never had his prostate checked before and is wondering as to when he should start getting that done [facility] Medical History (Updated 04/07/23 @ 13:36 by Johnnie Miller MD) Overweight (BMI 25.0-29.9) Obesity (BMI 30-39.9) Vitamin D deficiency Impaired fasting glucose Elevated LFTs Facet arthritis of lumbar region Pure hypercholesterolemia Cannabis withdrawal Insomnia Lumbar degenerative disc disease Surgical History History of hemilaminectomy History of hand surgery History of hemorrhoidectomy History of appendectomy Family History Father Hypertension Heart disease Mother Hypertension Diabetes Maternal Grandfather Leukemia Other Mental health problem Social History Housing: House Alcohol intake: current Alcohol intake frequency: holidays/special occasions only Patient Tobacco Use Status: Never used Tobacco e-Cigarette/Vaping Use: Never Used Second Hand Smoke Exposure: Yes Substance Use Type: Marijuana service: No Current occupational status: disabled Cognitive needs: No Hearing needs: No Vision needs: Yes Questionnaire PHQ-9 Over the last 2 weeks, how often have you been bothered by any of the following problems? 1. Little interest or pleasure in doing things: not at all 2. Feeling down, depressed, or hopeless: not at all 3. Trouble falling or staying asleep, or sleeping too much: not at all 4. Feeling tired or having little energy: not at all 5. Poor appetite or overeating: not at all 6. Feeling bad about yourself - or that you are a failure or have let yourself or your family down: not at all 7. Trouble concentrating on things, such as reading the newspaper or watching television: not at all 8. Moving or speaking so slowly that other people could have noticed. Or the opposite - being so fidgety or restless that you have been moving around a lot more than usual: not at all 9. Thoughts that you would be better off or of hurting yourself in some way: not at all Total score: 0 Depression Screening Interpretation: Negative Depression Screening Done: Yes 91681 - PHQ-9 Billing: Yes Source: Developed by Drs. Elías Davis, Kailee Muhammad, Kike Thurman and colleagues, with an educational cr from [employer]. Thrive Questionnaire Date Thrive assessed: 04/07/23 I am a: Patient What is your living situation today?: I have a steady place to live Within the past 12 months, did the food you bought not last and you didn't have the money to get more?: Never true Within the past 12 months, did you worry whether your food would run out before you got money to buy more?: Never true Do you have trouble paying for medicines?: No Do you have trouble getting transportation to medical appointments?: No Do you have trouble paying your heating and electricity bill?: No Do you have trouble taking care of your child, family member or friend?: No Do you have trouble with day-to-day activities such as bathing, preparing meals, shopping, managing finances, etc.?: No Are you currently unemployed and looking for a job?: No Are you interested in more education?: No Please select the resources that you would like help with: None Currently or been in a relationship where the following occur: no concerns reported THRIVE Score: 0 AUDIT C Alcohol Use Questionnaire (AUDIT-C) 1. How often do you have a drink containing alcohol?: Monthly or less 2. How many drinks containing alcohol do you have on a typical day when you are drinking?: 1 or 2 3. How often do you have six or more drinks on one occasion?: Never Total Score: 1 Score Reviewed/Action Taken: Yes THERESA-7 AMB Questionnaire THERESA-7 Date THERESA - 7 assessed: 10/07/22 Source: Developed by Drs. Elías Davis, Kailee Muhammad, Kike Thurman and colleagues, with an educational cr from [employer]. Review of Systems Const Denies fatigue, Denies fever(s) and Denies headache(s) ENT Denies dysphagia, Denies dizziness, Denies otalgia, Denies headache(s), Denies odynophagia and Denies sore throat Card Denies chest pain, Denies palpitations and Denies dyspnea Resp Denies cough and Denies dyspnea GI Denies abdominal pain, Denies constipation, Denies dysphagia, Denies heartburn, Denies diarrhea, Denies nausea, Denies odynophagia and Denies vomiting Denies dysuria, Denies nocturia and Denies urinary frequency Musc Reports back pain (over the lower back - chronic) Skin/Breast Denies rash Neuro Denies dizziness and Denies headache(s) Endo Denies fatigue and Denies palpitations Physical exam (Primary Care) Vital Signs: Last Vital Signs Pulse 88 04/07/23 12:34 BP 130/86 04/07/23 12:34 Pulse Ox 98 04/07/23 12:34 Oxygen Delivery Method Room Air 04/07/23 12:34 BMI result Body Mass Index 26.5 Tobacco/Smoking Status: Tobacco use Status Tobacco use date assessed 04/07/23 04/07/23 12:35 Patient Tobacco Use Status Never used Tobacco 04/07/23 12:35 e-Cigarette/Vaping Use Never Used 04/07/23 12:35 PHQ-9: PHQ-9 Score PHQ-9: Total score 0 04/07/23 12:44 Depression Screening Interpretation: Negative Thrive Assessment: Date of Thrive Assessment Date Thrive assessed 10/07/22 04/07/23 12:35 Currently or been in a relationship where the following occur: no concerns reported Const General: no acute distress and alert HENMT Ears: TM's normal bilaterally and EAC's normal Throat: Yes posterior oropharynx normal and Yes tonsils normal (no TP congestion noted) Neck Neck: Yes no lymphadenopathy and Yes supple Resp Auscultation: clear to auscultation bilaterally, no rales and no wheezes Cardio Rate: regular rate Rhythm: regular rhythm Heart sounds: no murmurs GI Palpation (GI): Soft to palpation and nontender Auscultation: normal bowel sounds Back/Spine/Pelvis Thoracic/Lumbar Spine: lumbar spinal tenderness Extrem General: Yes no clubbing, cyanosis or edema Results Reviewed Results Reviewed: Laboratory Tests 02/06/23 07:07 Sodium 141 Potassium 4.7 Creatinine 0.95 Estimated GFR > 60 Fasting Glucose 108 H Hemoglobin A1c % 5.6 Calcium 9.4 AST 22 ALT 26 Triglycerides 75 Cholesterol 193 LDL Cholesterol, Calc 128 H HDL Cholesterol 50 25-OH Vitamin D Total 49.8 TSH 1.50 Assessment and Plan Assessment & Plan (1) Pure hypercholesterolemia: Code(s): E78.00 - Pure hypercholesterolemia, unspecified Plan: Results of his labs done back in February 2023 reviewed and discussed with patient - advised that his cholesterol numbers are mostly acceptable and have improved signficantly from where they were a year or so ago BUT could and should continue to improve Reinforced low cholesterol diet Patient would like to continue with diet modification and prefers not to take cholesterol-lowering medications if he can avoid them Will recheck his labs and fasting lipids in 4 months for follow up (2) Impaired fasting glucose: Code(s): R73.01 - Impaired fasting glucose Plan: HgbA1c was normal at 5.4% and 5.7% when previously checked Reinforced low calorie diet/exercise as tolerated (3) Elevated LFTs: Code(s): R79.89 - Other specified abnormal findings of blood chemistry Plan: Improved; LFTs have remained normal on his recent labs - advised that this was most likely due to fatty liver changes related to his weight Reinforced low calorie diet/exercise as tolerated Will continue to monitor his LFTs regularly (4) Vitamin D deficiency: Code(s): E55.9 - Vitamin D deficiency, unspecified Plan: Continue OTC Vitamin D3 1000 units QOD (5) Facet arthritis of lumbar region: Code(s): M47.816 - Spondylosis without myelopathy or radiculopathy, lumbar region Plan: Reinforced activity and weight-lifting restrictions Follow up with [facility] as scheduled Has been reportedly advised that lumbar spine facet injections are no longer an option for him and he was recommended the option of a spinal cord stimulator, which patient has considered but decided against for now Continue Gabapentin 300 mg Q HS, Tramadol 50 mg every 6 hours PRN for pain and Baclofen 20 mg Q HS PRN (6) Overweight (BMI 25.0-29.9): Code(s): E66.3 - Overweight Plan: Reinforced diet/exercise as tolerated/lose weight - he has managed to lose over 20 pounds since his last visit (7) Colon cancer screening: Code(s): Z12.11 - Encounter for screening for malignant neoplasm of colon Plan: States that he has never had a screening colonoscopy done before and would like to try Cologuard testing for now Have advised him that if he does not have any significant urinary symptoms, I can just include a PSA screening test with his next labs and he does not need any actual MERCEDES at this time Plan Follow up in 4 months Orders: Orders Complete Blood Count Auto Diff 4 Months D64.9 - Anemia, unspecified UA CC w/rflx Micro + Cult 4 Months R30.0 - Dysuria Vitamin D 25-OH Total 4 Months E55.9 - Vitamin D deficiency, unspecified Comprehensive [place]. Panel Fast 4 Months E78.00 - Pure hypercholesterolemia, unspecified Lipid Panel 4 Months E78.00 - Pure hypercholesterolemia, unspecified Prostate Specific Antigen Scr 4 Months Z00.00 - Encounter for general adult medical examination without abnormal findings TSH reflex Free T4 4 Months E78.00 - Pure hypercholesterolemia, unspecified Referrals Cologuard Test Z12.11 - Encounter for screening for malignant neoplasm of colon, Z12.12 - Encounter for screening for malignant neoplasm of rectum Coding Level of Care Code Est Pt Level 4 (63175) Diagnoses Pure hypercholesterolemia E78.00 Impaired fasting glucose R73.01 Elevated LFTs R79.89 Vitamin D deficiency E55.9 Facet arthritis of lumbar region M47.816 Overweight (BMI 25.0-29.9) E66.3 Colon cancer screening Z12.11
== END 2023-04-07 13:27 | disposition home or self-care (01) ==
PROVIDERS: PCP Internal Medicine; Visit Provider Internal Medicine
DX: E78.00 Pure hypercholesterolemia, unspecified (principal); R73.01 Impaired fasting glucose; R79.89 Other specified abnormal findings of blood chemistry; E55.9 Vitamin D deficiency, unspecified; M47.816 Spondylosis without myelopathy or radiculopathy, lumbar region; E66.3 Overweight; Z12.11 Encounter for screening for malignant neoplasm of colon
CPT/HCPCS: 99214

== ENCOUNTER 2023-04-26 08:37 | Outpatient (REF) | payer OTHER, SELFPAY ==
--- NOTE | ~2023-04-26 | XR_ITS ---
EXAMINATION: XR KNEE AP STANDING CLINICAL INFORMATION: Right knee pain. COMPARISON: Radiographs dated 01/02/2019. TECHNIQUE: AP bilateral standing view of the knees was obtained. FINDINGS: No fracture or joint effusion. Alignment is anatomic. Joint spaces are maintained. No abnormal soft tissue calcification. XR/XR knee standing BI IMPRESSION: Normal knees.
== END 2023-04-26 08:38 | disposition home or self-care (01) ==
LOC: HO.XRAY 08:37
PROVIDERS: PCP Internal Medicine; Visit Provider Internal Medicine
DX: M25.561 Pain in right knee (principal); M25.562 Pain in left knee
CPT/HCPCS: 73565

== ENCOUNTER 2023-05-15 11:20 | Emergency (ER) | payer OTHER, SELFPAY ==
--- NOTE | ~2023-05-15 | XR_ITS ---
EXAMINATION: XR CHEST CLINICAL INFORMATION: Chest pain. COMPARISON: 07/17/2018 TECHNIQUE: Frontal view of the chest was obtained. FINDINGS: The lungs are well expanded. No focal consolidation. No pleural effusion. Cardiac silhouette is within normal limits. XR/XR chest 1V IMPRESSION: No acute abnormality.
--- NOTE | 2023-05-15 11:22 | ECG_ITS ---
Test Reason : chest pain Blood Pressure : / mmHG Vent. Rate : 101 BPM Atrial Rate : 101 BPM P-R Int : 122 ms QRS Dur : 080 ms QT Int : 328 ms P-R-T Axes : 029 038 024 degrees QTc Int : 425 ms Sinus tachycardia Possible Anteroseptal infarct (cited on or before 17-JUL-2018) Abnormal ECG When compared with ECG of 17-JUL-2018 09:29, Vent. rate has increased BY 35 BPM Referred By: Carl Mishra Electronically Signed By:MABLE MONDRAGON MD
[2023-05-15 11:44] VITALS: BP 133/78; PULSE 84; RESP 18; TEMP 36.6; O2SAT 98; BMI 29.6
--- NOTE | 2023-05-15 11:45 | ED.GENADULT ---
HPI - General Adult General Chief complaint: General Medical Stated complaint: chest pain Time Seen by Provider: 05/15/23 16:14 Source: patient and family (patient's ) Mode of arrival: ambulatory Limitations: no limitations History of Present Illness HPI narrative: Patient is a 48 year old assigned male at with no reported medical history presenting to the emergency department today with left sided chest pain. Patient states that he has been under a lot of family stress and he began to have chest pain and palpitations today. Patient denies any dizziness, lightheadedness, abdominal pain, nausea, vomiting, fever, chills, blurry vision, double vision, loss of vision, difficulty breathing, shortness of breath, back pain, night sweats, pain with urination, increased urinary frequency, increased urinary urgency, blood in his urine or stool, syncope or a near syncopal episode, recent trauma or falls, bowel incontinence, bladder incontinence, bowel retention, bladder retention, or any other complaints at this time. Onset (ago): hour(s) Location: chest Severity: mild Severity scale (1-10): 3 Quality: aching and dull Pain Consistency: constant Relieving factors: none Exacerbating factors: none Associated symptoms: chest pain Treatments prior to arrival: none Related Data Previous Rx's Medication Instructions Recorded tramadol 50 mg tablet 50 mg PO Q6H PRN pain #20 tabs 05/24/20 gabapentin 300 mg capsule 300 mg PO BEDTIME 90 days #90 caps 06/09/22 baclofen 20 mg tablet 20 mg PO BEDTIME 90 days #90 tabs 11/23/22 Allergies Allergy/AdvReac Type Severity Reaction Status Date / Time penicillin V Allergy Unknown seizures, Verified 05/15/23 11:43 seizure-in childhood Penicillins [PENICILLINS] Allergy Unknown SEIZURE Verified 05/15/23 11:43 Review of Systems Constitutional: Constitutional: Reports no additional constitutional complaints, Denies chills, Denies fever(s) and Denies night sweats Eyes: Eyes: Reports no additional eye complaints, Denies blurry vision, Denies change in vision, Denies diplopia, Denies eye discharge, Denies loss of vision and Denies eye pain ENT: Denies dizziness Cardiovascular: Cardiovascular: Reports no additional cardiovascular complaints, Reports chest pain, Denies lightheadedness, Denies Loss of Consciousness and Denies dyspnea Respiratory: Respiratory: Reports no additional respiratory complaints and Denies dyspnea Gastrointestinal: Gastrointestinal: Reports no additional gastrointestinal complaints, Denies abdominal pain, Denies melena, Denies hematochezia, Denies change in bowel habits and Denies change in stool character Genitourinary: Genitourinary: Reports no additional male genitourinary complaints, Denies hematuria, Denies oliguria, Denies difficulty urinating, Denies dysuria, Denies urinary frequency, Denies urinary hesitancy, Denies urinary incontinence and Denies urinary urgency Musculoskeletal: Musculoskeletal: Reports no additional musculoskeletal complaints, Denies numbness and Denies tingling Neurologic: Denies dizziness, Denies loss of vision, Denies numbness and Denies tingling Psychiatric: Psychiatric: Reports no additional psychiatric complaints Endocrine: Endocrine: Reports no additional endocrine complaints Hematologic/Lymphatic: Hematologic/Lymphatic: Reports no additional hematologic/lymphatic complaints Allergic/Immunologic: Allergic/Immunologic: Reports no additional allergic/immunologic complaints PMFSH Past Medical History Attestation statement: The following information was validated with the patient. (all information validated with the patient's ) Source: old records reviewed, obtained from family (patient's provided additional history and confirmed the history provided by the patient.) and nursing notes reviewed Medical History Overweight (BMI 25.0-29.9) Obesity (BMI 30-39.9) Vitamin D deficiency Impaired fasting glucose Elevated LFTs Facet arthritis of lumbar region Pure hypercholesterolemia Cannabis withdrawal Insomnia Lumbar degenerative disc disease Surgical History History of hemilaminectomy History of hand surgery History of hemorrhoidectomy History of appendectomy Family History Family History Father Hypertension Heart disease Mother Hypertension Diabetes Maternal Grandfather Leukemia Other Mental health problem Social History Social History Housing: House Alcohol intake: current Alcohol intake frequency: holidays/special occasions only Patient Tobacco Use Status: Never used Tobacco e-Cigarette/Vaping Use: Never Used Second Hand Smoke Exposure: Yes Substance Use Type: Marijuana Advance Directives: No service: No Current occupational status: disabled Cognitive needs: No Hearing needs: No Vision needs: Yes Physical Exam ED Vital Signs: Vital Signs - 24 hr 05/15/23 11:44 05/15/23 16:16 Temperature 98 F 98.2 F Pulse Rate 84 73 Respiratory Rate 18 16 Blood Pressure 133/78 138/86 Pulse Oximetry 98 99 Oxygen Delivery Method Room Air BMI result Body Mass Index 29.6 Const General: cooperative, no acute distress, alert and awake Nutritional Appearance: well nourished Orientation/consciousness: patient oriented x3 Limitations: no limitations HENMT Head: Yes normal to inspection and Yes atraumatic Ears: hearing grossly normal bilaterally and external ears normal General nose exam: Normal external nose present, no nasal discharge noted and no epistaxis Face and sinus: Yes normal facial exam, No abrasion and No laceration Mouth: Normal oral and palatal mucosa present, no drooling and no muffled voice Eyes General: appearance normal, both eyes and all related structures Periorbital: periorbital findings normal Eyelids: Yes eyelids normal Conjunctivae: conjunctivae normal Pupils: Equal, round and reactive pupils present EOM: EOMs intact bilaterally Neck Neck: Yes normal visual inspection, Yes full ROM and Yes no lymphadenopathy Chest Chest palpation & inspection: normal inspection of the chest Resp Effort & Inspection: normal respiratory effort and able to speak in complete sentences GI Inspection: Yes normal to inspection Neuro General: patient oriented x3 and moves all extremities Cranial nerves: Yes Equal, round and reactive pupils present Cognition (Neuro): normal cognition Motor exam (neuro): 5/5 motor strength present throughout Sensory Exam: Normal double simultaneous stimulation for sensation Coordination: [id number] test normal Extrem General: Yes normal to inspection, Yes full ROM and Yes capillary refill normal Psych Appearance: grossly normal Mental Status: mental status grossly normal Affect: normal affect Attitude: cooperative Thought process: Normal thought process present Thought content: Normal thought content present Insight: Good insight present (Psych) Course Course Course Narrative: RME: 48 yold male with pmh of anxiety presents to the ED for chest pain since his duaghter removed his granddaughter from his care. patient has not been able to eat due to missing his grandaughter. patient is not suicidal or homicidal. labs, chest xray and ekg ordered Medical Decision Making Medical Decision Making MDM Narrative: Patient is a 48 year old assigned male at with no reported medical history presenting to the emergency department today with left sided chest pain. Patient's physical exam was unremarkable. Patient's blood work was unremarkable. Patient's EKG was unremarkable. Patient's chest x-ray showed no acute process. I explained my physical exam findings as well as all test results to the patient. I answered all questions asked by the patient. I stressed the importance of the patient taking his medication as prescribed. I stressed the importance of the patient following up with his primary care provider. I stressed the importance of the patient returning to the emergency department immediately if his symptoms were to worsen or if he were to develop any dizziness, shortness of breath, difficulty breathing, chest pain, blurry vision, loss of vision, nausea, vomiting, abdominal pain, fever, chills, back pain, or any other complaints. Patient and the patient's verbalized agreement and understanding with this treatment plan and discharge. Differential Diagnosis Differential Diagnoses: The differential diagnosis associated with the presentation includes Chest pain NSTEMI STEMI Musculoskeletal pain Admission/Observation Consideration of admission/observation: Escalation of care including admission/observation considered Patient would have been admitted to the hospital had his work up had any findings where hospital admission was appropriate and his clinical presentation warranted hospital admission. Lab Data [facility] Lab Attestation statement: I reviewed the patient's lab results. My interpretation of these results are in the [facility] Rationale portion of this note. 05/15/23 12:55 05/15/23 12:55 Labs: Lab Results 05/15/23 05/15/23 Range/Units 12:55 15:29 WBC 8.2 (4.8-10.8) X10*3/uL RBC 5.35 (4.60-5.80) X10*6/uL Hgb 16.0 (14.0-18.0) g/dl Hct 47.0 (42.0-52.0) % MCV 87.9 (80.0-98.0) fL MCH 29.9 (27.0-33.0) pg MCHC 34.0 (31.0-36.0) g/dl RDW 12.2 (11.0-16.0) % Plt Count 201 (160-400) X10*3/uL MPV 10.2 (9.4-12.4) fL Immature Gran % (Auto) 0.2 (0.0-0.4) % Neut % (Auto) 70.3 (45-73) % Lymph % (Auto) 21.9 (20-40) % Evans % (Auto) 7.0 (2-11) % Eos % (Auto) 0.2 (0-4) % Baso % (Auto) 0.4 (0-2) % Lymph # (Auto) 1.8 (1.2-4.9) X10*3/uL Evans # (Auto) 0.6 (0.1-1.2) X10*3/uL Eos # (Auto) 0.0 (0.0-0.4) X10*3/uL Baso # (Auto) 0.0 (0.0-0.2) X10*3/uL Abs Immat Gran (auto) 0.02 (0.00-0.03) X10*3/uL Absolute Neuts (auto) 5.7 (2.0-8.3) x10*3/uL Absolute Nucleated RBC 0.000 (0.0-0.012) X10*3/uL Nucleated RBC % (auto) 0.0 (0.0-0.2) /100WBC PT 11.7 (11.1-13.3) SEC INR 1.0 (0.9-1.1) APTT 30.8 (26.0-36.8) SEC Sodium 139 (135-145) mmol/L Potassium 4.6 (3.3-5.1) mmol/L Chloride 105 (96-108) mmol/L Carbon Dioxide 27 (22-29) mmol/L Anion Gap 12 (12-20) BUN 11 (9-16) mg/dL Creatinine 0.97 (0.5-1.4) mg/dL Estim Creat Clear Calc 98.4 Estimated GFR > 60 Random Glucose 95 (60-115) mg/dL Calcium 9.6 (8.4-10.2) mg/dL Total Bilirubin 0.4 (0.0-1.0) mg/dL AST 22 (5-37) U/L ALT 24 (0-40) U/L Alkaline Phosphatase 51 (39-117) U/L Troponin I High Sens < 2.7 < 2.7 (<3.5-35.0) ng/L B-Natriuretic Peptide < 10 (<100) pg/mL Total Protein 7.9 (6.5-8.0) g/dL Albumin 4.4 (3.5-5.0) g/dL Independent Interpretation I performed an independent interpretation of an: EKG and Plain X-Ray Interpretation: My interpretation is in agreement with the radiologist's impression of this imaging study. EXAMINATION: XR CHEST CLINICAL INFORMATION: Chest pain. COMPARISON: 07/17/2018 TECHNIQUE: Frontal view of the chest was obtained. FINDINGS: The lungs are well expanded. No focal consolidation. No pleural effusion. Cardiac silhouette is within normal limits. XR/XR chest 1V IMPRESSION: No acute abnormality. Dictated By: Osorio Pringle MD Signed By: Electronically signed by Osorio Pringle MD 05/15/23 1255 Vent. Rate: 101 BPM Atrial Rate: 101 BPM P-R Int: 122 ms QRS Dur: 080 ms QT Int: 328 ms P-R-T Axes: 029 038 024 degrees QTc Int: 425 ms Sinus tachycardia Possible Anteroseptal infarct (cited on or before 17-JUL-2018) Abnormal ECG When compared with ECG of 17-JUL-2018 09:29, Vent. rate has increased BY 35 BPM Electronically Signed By:OLE MONDRAGON MD Dictated By: Ole Mondragon MD Signed By: Electronically signed by Ole Mondragon MD 05/15/23 1508 Radiology Impression Discussion of test interpretation with radiology: I have reviewed the radiologist's reading. Independent Historian Clinical information obtained from an independent historian. History obtained from or confirmed by: Spouse (patient's provided additional history and confirmed the history provided by the patient.) Discharge Plan Discharge Clinical Impression: Chest pain Patient Disposition: Home, Self-Care Instructions: Chest Pain (DC) Additional Instructions: Your lab work, EKG, and chest x-ray were all very reassuring and grossly normal. Follow up with your primary care provider. Return to the emergency department immediately if your symptoms worsen or if you develop any dizziness, shortness of breath, difficulty breathing, chest pain, blurry vision, loss of vision, nausea, vomiting, abdominal pain, fever, chills, back pain, or any other complaints. Prescriptions: No Action baclofen 20 mg tablet 20 mg PO BEDTIME 90 Days Qty: 90 3RF tramadol 50 mg tablet 50 mg PO Q6H PRN (Reason: pain) Qty: 20 0RF gabapentin 300 mg capsule 300 mg PO BEDTIME 90 Days Qty: 90 3RF Referrals: Johnnie Miller MD [Primary Care Provider] - Stand Alone Forms: Work/School Release Interventions: ED Discharge Assessment Last Done: 05/15/23 16:50 Discharge Date/Time: 05/15/23 16:51 Print Language: Brazilian
[2023-05-15 12:59] LABS: MANUAL DIFF FLAG NO
[2023-05-15 13:02] LABS: Basophils Percent Auto 0.4 % (0-2); Eosinophils Percent Auto 0.2 % (0-4); Imm Gran Abs Auto 0.02 X10*3/uL (0.00-0.03); Imm Gran Pct Auto 0.2 % (0.0-0.4); Lymphocytes Absolute Auto 1.8 X10*3/uL (1.2-4.9); Lymphocytes Percent Auto 21.9 % (20-40); Mean Corpuscular Hemoglobin 29.9 pg (27.0-33.0); Mean Corpuscular Volume 87.9 fL (80.0-98.0); Mean Platelet Volume 10.2 fL (9.4-12.4); Monocytes Absolute Auto 0.6 X10*3/uL (0.1-1.2); Neutrophils Absolute Auto 5.7 x10*3/uL (2.0-8.3); Neutrophils Percent Auto 70.3 % (45-73); Platelet Count 201 X10*3/uL (160-400); Red Blood Count 5.35 X10*6/uL (4.60-5.80); Red Cell Distribution Width 12.2 % (11.0-16.0); White Blood Count 8.2 X10*3/uL (4.8-10.8)
[2023-05-15 13:08] LABS: Prothrombin Time 11.7 SEC (11.1-13.3)
[2023-05-15 13:11] LABS: Partial Thromboplastin Time 30.8 SEC (26.0-36.8)
[2023-05-15 13:17] LABS: Alanine Aminotransferase 24 U/L (0-40); Albumin Level 4.4 g/dL (3.5-5.0); Alkaline Phosphatase 51 U/L (39-117); Anion Gap 12 (12-20); Aspartate Amino Transferase 22 U/L (5-37); Bilirubin Total 0.4 mg/dL (0.0-1.0); Blood Urea Nitrogen 11 mg/dL (9-16); Calcium 9.6 mg/dL (8.4-10.2); Carbon Dioxide 27 mmol/L (22-29); Chloride 105 mmol/L (96-108); Creatinine Clr Calc Pharmacy 98.4; Estimated Glomerular Filt Rate > 60; Glucose Random 95 mg/dL (60-115); Potassium 4.6 mmol/L (3.3-5.1); Sodium 139 mmol/L (135-145); Total Protein 7.9 g/dL (6.5-8.0)
[2023-05-15 13:21] LABS: B Type Natriuretic Peptide < 10 pg/mL (<100)
[2023-05-15 13:25] LABS: Troponin-I High Sensitivity < 2.7 ng/L (<3.5-35.0)
--- NOTE | 2023-05-15 15:34 | MHC.EDTECH ---
PATIENT 2ND TROP DRAWN AND SENT TO LAB .
[2023-05-15 16:10] LABS: Troponin-I High Sensitivity < 2.7 ng/L (<3.5-35.0)
[2023-05-15 16:16] VITALS: BP 138/86; PULSE 73; RESP 16; TEMP 36.8; O2SAT 99
== END 2023-05-15 16:51 | disposition home or self-care (01) ==
PROVIDERS: Physician Assistant; Physician Assistant Medical; Emergency Provider Emergency Medicine; PCP Internal Medicine
DX: R07.9 Chest pain, unspecified (principal)
CPT/HCPCS: 36415; 71045; 80053; 83880; 84484; 85025; 85610; 85730; 93005; 99283; 99284

== ENCOUNTER → 2023-05-15 11:22 | Outpatient (BNV) | payer OTHER, SELFPAY | PROVIDERS: PCP Internal Medicine; Visit Provider Internal Medicine Cardiovascular Disease | DX: R07.9 Chest pain, unspecified (principal) | CPT/HCPCS: 93010 ==

== ENCOUNTER 2023-07-15 11:39 | Emergency (ER) | payer OTHER, SELFPAY ==
[2023-07-15 11:46] VITALS: BP 122/81; PULSE 92; RESP 16; TEMP 37.1; O2SAT 99; BMI 29.6
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
[2023-07-15 13:42] VITALS: BP 122/81; PULSE 92; RESP 16; TEMP 37.1; O2SAT 99
== END 2023-07-15 13:35 | disposition home or self-care (01) ==
PROVIDERS: Emergency Provider Student in an Organized Health Care Education/Training Program; PCP Internal Medicine
DX: T23.041A Burn of unspecified degree of multiple right fingers (nail), including thumb, initial encounter (principal); X12.XXXA Contact with other hot fluids, initial encounter; Y93.9 Activity, unspecified; Y92.9 Unspecified place or not applicable; Y99.9 Unspecified external cause status
CPT/HCPCS: 99282; 99283

== ENCOUNTER 2023-07-24 09:16 | Outpatient (AMB) | payer OTHER, SELFPAY ==
--- NOTE | 2023-07-24 09:43 | AM.OFFVISNUR ---
Intake Intake Visit Reasons: TD Booster Allergies penicillin V Allergy (Unknown, Verified 07/15/23 11:50) seizures, seizure-in childhood Penicillins [PENICILLINS] Allergy (Unknown, Verified 07/15/23 11:50) SEIZURE Immunizations TDVAX 2 Lf unit-2 Lf unit/0.5 mL intramuscular suspension Performing Provider: Johnnie Miller MD Performing Location: [facility] Administered by: Haroon Castillo RN on 07/24/23 09:44 Dose Route Admin Location Dispensed Lot Number Expiration Date NDC Client Analyst 0.5 mL IM Left Deltoid 0.5 mL [id number] 04/15/24 [address]-4 [employer] VIS Given Date VIS Provided VIS Publication Date 07/24/23 Single Vaccine 20 Eligibility Eligibility Date Funding Source Not [facility] Eligible 07/24/23 Private Administration Comments: consented for Td booster and tolerated well. Coding Assessment & Plan Assessment & Plan Orders: Orders Td Immunization Today Z23 - Encounter for immunization Medications: New TDVAX (tetanus-diphtheria toxoids-Td) 0.5 mL IM ONCE 0.5 mL 0RF NS Z23 - Encounter for immunization
== END 2023-07-24 09:47 | disposition home or self-care (01) ==
PROVIDERS: PCP Internal Medicine; Visit Provider Internal Medicine
DX: Z23 Encounter for immunization (principal)
CPT/HCPCS: 90471; 90714

== ENCOUNTER 2023-08-07 07:20 | Outpatient (REF) | payer OTHER, SELFPAY ==
[2023-08-07 07:39] LABS: MANUAL DIFF FLAG NO
[2023-08-07 08:05] LABS: Basophils Absolute Auto 0.1 X10*3/uL (0.0-0.2); Basophils Percent Auto 0.8 % (0-2); Eosinophils Absolute Auto 0.1 X10*3/uL (0.0-0.4); Eosinophils Percent Auto 1.8 % (0-4); Hematocrit 45.1 % (42.0-52.0); Hemoglobin 15.5 g/dl (14.0-18.0); Imm Gran Abs Auto 0.01 X10*3/uL (0.00-0.03); Imm Gran Pct Auto 0.2 % (0.0-0.4); Lymphocytes Absolute Auto 2.3 X10*3/uL (1.2-4.9); Lymphocytes Percent Auto 35.7 % (20-40); Mean Corpuscular HGB Conc 34.4 g/dl (31.0-36.0); Mean Corpuscular Hemoglobin 30.4 pg (27.0-33.0); Mean Corpuscular Volume 88.4 fL (80.0-98.0); Mean Platelet Volume 10.3 fL (9.4-12.4); Monocytes Absolute Auto 0.5 X10*3/uL (0.1-1.2); Monocytes Percent Auto 7.3 % (2-11); Neutrophils Absolute Auto 3.6 x10*3/uL (2.0-8.3); Neutrophils Percent Auto 54.2 % (45-73); Platelet Count 180 X10*3/uL (160-400); Red Cell Distribution Width 12.3 % (11.0-16.0); White Blood Count 6.6 X10*3/uL (4.8-10.8)
[2023-08-07 08:43] LABS: Appearance Urine Clear; Color Urine Yellow; Glucose Urine UA Negative (Negative); Leukocyte Esterase Urine Negative (Negative); Nitrite Urine Negative (Negative); PH 6.5 (5.0-9.0); Urine Blood Negative (Negative); Urine Ketones Negative (Negative); Urine Protein Negative (Neg-Trace)
[2023-08-07 08:52] LABS: Alanine Aminotransferase 18 U/L (0-40); Albumin Level 4.2 g/dL (3.5-5.0); Alkaline Phosphatase 49 U/L (39-117); Anion Gap 11 (12-20); Aspartate Amino Transferase 18 U/L (5-37); Bilirubin Total 0.4 mg/dL (0.0-1.0); Blood Urea Nitrogen 13 mg/dL (9-16); Calcium 9.3 mg/dL (8.4-10.2); Carbon Dioxide 28 mmol/L (22-29); Chloride 105 mmol/L (96-108); Cholesterol 174 mg/dL (<200); Estimated Glomerular Filt Rate > 60; Glucose Fasting 103 mg/dL (60-99); HDL Cholesterol 52 mg/dL (>40); LDL Cholesterol Calculated 107 mg/dL (<100); Potassium 4.3 mmol/L (3.3-5.1); Sodium 140 mmol/L (135-145); TSH reflex Free T4 0.85 uIU/mL (0.32-4.0); Total Protein 7.3 g/dL (6.5-8.0); Triglycerides 78 mg/dL (<150); Vitamin D 25-OH Total 45.1 ng/mL (>30)
[2023-08-07 08:59] LABS: Prostate Specific Antigen Scr 0.64 ng/mL (<0.05-4.0)
== END 2023-08-07 07:21 | disposition home or self-care (01) ==
LOC: HO.LAB 07:20
PROVIDERS: PCP Internal Medicine; Visit Provider Internal Medicine
DX: Z00.00 Encounter for general adult medical examination without abnormal findings (principal); Z12.5 Encounter for screening for malignant neoplasm of prostate; R30.0 Dysuria; E78.00 Pure hypercholesterolemia, unspecified; D64.9 Anemia, unspecified; E55.9 Vitamin D deficiency, unspecified
CPT/HCPCS: 36415; 80053; 80061; 81003; 82306; 84153; 84443; 85025

== ENCOUNTER 2023-08-14 12:45 | Outpatient (AMB) | payer OTHER, SELFPAY ==
--- NOTE | 2023-08-14 12:55 | MHC.PC.OV ---
Vital Signs 08/14/23 12:57 Height 5 ft 8 in Weight 192 lb BMI 29.2 BP 100/60 Blood Pressure Location Lt brachial Position Sitting Pulse 60 Pulse Source Pulse Oximeter Pulse Oximetry (%) 97 Oxygen Delivery Method Room Air Intake Visit Reasons: 4 month f/u Intake Note: Patient is here to follow up on IFG, Hypercholesterolemia. Projects Manager Required: No Waiter/Waitress Club: Not Required per policy Accompanied by: Self / Same As Patient Allergies penicillin V Allergy (Unknown, Verified 08/14/23 13:30) seizures, seizure-in childhood Penicillins [PENICILLINS] Allergy (Unknown, Verified 08/14/23 13:30) SEIZURE Medication List - Last Reconciled 08/14/23 by Johnnie Miller MD baclofen 20 mg PO BEDTIME 90 days gabapentin 300 mg PO BEDTIME 90 days tramadol 50 mg PO Q6H PRN Tobacco use date assessed: 08/14/23 Dental Screening Dental Screen Date: 04/07/23 HPI 4 month f/u HPI Details Patient comes in today for his follow up visit States that he feels okay He denies any headaches or dizziness Denies any chest pains, no SOB No nausea/vomiting, no abdominal pain No change in bowel habits noted Had his follow up labs done last week - to discuss his results [facility] Medical History Overweight (BMI 25.0-29.9) Obesity (BMI 30-39.9) Vitamin D deficiency Impaired fasting glucose Elevated LFTs Facet arthritis of lumbar region Pure hypercholesterolemia Cannabis withdrawal Insomnia Lumbar degenerative disc disease Surgical History History of hemilaminectomy History of hand surgery History of hemorrhoidectomy History of appendectomy Family History Father Hypertension Heart disease Mother Hypertension Diabetes Maternal Grandfather Leukemia Other Mental health problem Social History Housing: House Alcohol intake: current Alcohol intake frequency: holidays/special occasions only Patient Tobacco Use Status: Never used Tobacco e-Cigarette/Vaping Use: Never Used Second Hand Smoke Exposure: Yes Substance Use Type: Marijuana service: No Current occupational status: disabled Cognitive needs: No Hearing needs: No Vision needs: Yes Questionnaire Thrive Questionnaire Date Thrive assessed: 04/07/23 THERESA-7 AMB Questionnaire THERESA-7 Date THERESA - 7 assessed: 08/14/23 Feeling nervous, anxious, or on edge: 0 = Not at all Not being able to stop or control worryin = Not at all Worrying too much about different things: 0 = Not at all Trouble relaxin = Not at all Being so restless that it is hard to sit still: 0 = Not at all Becoming easily annoyed or irritable: 0 = Not at all Feeling afraid as if something awful might happen: 0 = Not at all Total THERESA-7 score (0-4 normal; 5-9 mild; 10-14 moderate; 15-21 severe): 0 Source: Developed by Drs. Elías Davis, Kailee Muhammad, Kike Thurman and colleagues, with an educational cr from [employer]. Review of Systems Const Denies chills, Denies fatigue, Denies fever(s) and Denies headache(s) ENT Denies dysphagia, Denies dizziness, Denies otalgia, Denies headache(s), Denies neck pain, Denies odynophagia and Denies sore throat Card Denies chest pain, Denies palpitations and Denies dyspnea Resp Denies cough and Denies dyspnea GI Denies abdominal pain, Denies constipation, Denies dysphagia, Denies heartburn, Denies diarrhea, Denies nausea, Denies odynophagia and Denies vomiting Denies dysuria, Denies nocturia and Denies urinary frequency Musc Reports back pain (over the lower back - chronic) and Denies neck pain Skin/Breast Denies rash Neuro Denies dizziness and Denies headache(s) Endo Denies fatigue and Denies palpitations Physical exam (Primary Care) Vital Signs: Last Vital Signs Pulse 60 08/14/23 12:57 BP 100/60 08/14/23 12:57 Pulse Ox 97 08/14/23 12:57 Oxygen Delivery Method Room Air 08/14/23 12:57 BMI result Body Mass Index 29.2 Tobacco/Smoking Status: Tobacco use Status Tobacco use date assessed 08/14/23 08/14/23 12:57 Patient Tobacco Use Status Never used Tobacco 08/14/23 12:57 e-Cigarette/Vaping Use Never Used 08/14/23 12:57 Thrive Assessment: Date of Thrive Assessment Date Thrive assessed 04/07/23 08/14/23 12:57 Const General: no acute distress and alert HENMT Ears: TM's normal bilaterally and EAC's normal Throat: Yes posterior oropharynx normal and Yes tonsils normal (no TP congestion noted) Neck Neck: Yes no lymphadenopathy and Yes supple Thyroid: Thyroid normal Resp Auscultation: clear to auscultation bilaterally, no rales and no wheezes Cardio Rate: regular rate Rhythm: regular rhythm Heart sounds: no murmurs GI Palpation (GI): Soft to palpation and nontender Auscultation: normal bowel sounds Back/Spine/Pelvis Thoracic/Lumbar Spine: lumbar spinal tenderness Extrem General: Yes no clubbing, cyanosis or edema Results Reviewed Results Reviewed: Laboratory Tests 02/06/23 08/07/23 08/07/23 07:07 07:35 07:39 WBC 6.6 Hgb 15.5 Hct 45.1 Plt Count 180 Sodium 140 Potassium 4.3 Creatinine 0.96 Estimated GFR > 60 Fasting Glucose 103 H Hemoglobin A1c % 5.6 Calcium 9.3 AST 18 ALT 18 Triglycerides 78 Cholesterol 174 LDL Cholesterol, Calc 107 H HDL Cholesterol 52 PSA Screen 0.64 25-OH Vitamin D Total 45.1 TSH 0.85 Ur Specific [place] 1.020 Urine Protein Negative Urine Glucose (UA) Negative Urine Blood Negative Urine Nitrite Negative Ur Leukocyte Esterase Negative Assessment and Plan Assessment & Plan (1) Pure hypercholesterolemia: Code(s): E78.00 - Pure hypercholesterolemia, unspecified Plan: Results of his labs done last week reviewed and discussed with patient - he is advised that his cholesterol numbers have improved further from previous Reinforced low cholesterol diet Patient would like to continue with diet modification alone and prefers not to take cholesterol-lowering medications if he can avoid them Will recheck his labs and fasting lipids in 4 months for follow up (2) Impaired fasting glucose: Code(s): R73.01 - Impaired fasting glucose Plan: HgbA1c was normal at 5.4% and 5.7% when previously checked; FBS is still slightly elevated on his recent labs at 103 mg/dl Reinforced low calorie diet/exercise as tolerated (3) Elevated LFTs: Code(s): R79.89 - Other specified abnormal findings of blood chemistry Plan: Improved and his LFTs have remained normal on his follow up labs done last week Is advised that this was most likely due to fatty liver changes related to his weight Reinforced low calorie diet/exercise as tolerated Will continue to monitor his LFTs regularly (4) Vitamin D deficiency: Code(s): E55.9 - Vitamin D deficiency, unspecified Plan: Continue OTC Vitamin D3 1000 units QOD (5) Facet arthritis of lumbar region: Code(s): M47.816 - Spondylosis without myelopathy or radiculopathy, lumbar region Plan: Reinforced activity and weight-lifting restrictions Follow up with [facility] as scheduled Has been reportedly advised that lumbar spine facet injections are no longer an option for him and he was recommended the option of a spinal cord stimulator, which patient has considered but decided against for now Continue Gabapentin 300 mg Q HS, Tramadol 50 mg every 6 hours PRN for pain and Baclofen 20 mg Q HS PRN (6) Overweight (BMI 25.0-29.9): Code(s): E66.3 - Overweight Plan: Reinforced diet/exercise as tolerated/lose weight - he has been able to lose a few more pounds since his last visit Plan Follow up in 4 months Orders: Orders Lipid Panel 4 Months E78.00 - Pure hypercholesterolemia, unspecified Hemoglobin A1c 4 Months R73.01 - Impaired fasting glucose Complete Blood Count Auto Diff 4 Months D64.9 - Anemia, unspecified UA CC w/rflx Micro + Cult 4 Months R30.0 - Dysuria Comprehensive [place]. Panel Fast 4 Months E78.00 - Pure hypercholesterolemia, unspecified Coding Level of Care Code Est Pt Level 4 (79685) Complex EM visit Add On G2211 Diagnoses Pure hypercholesterolemia E78.00 Impaired fasting glucose R73.01 Elevated LFTs R79.89 Vitamin D deficiency E55.9 Facet arthritis of lumbar region M47.816 Overweight (BMI 25.0-29.9) E66.3
[2023-08-14 12:57] VITALS: BP 100/60; PULSE 60; O2SAT 97; BMI 29.2
== END 2023-08-14 13:38 | disposition home or self-care (01) ==
PROVIDERS: PCP Internal Medicine; Visit Provider Internal Medicine
DX: E78.00 Pure hypercholesterolemia, unspecified (principal); R73.01 Impaired fasting glucose; R79.89 Other specified abnormal findings of blood chemistry; E55.9 Vitamin D deficiency, unspecified; M47.816 Spondylosis without myelopathy or radiculopathy, lumbar region; E66.3 Overweight
CPT/HCPCS: 99214; G2211

== ENCOUNTER 2023-12-18 07:04 | Outpatient (REF) | payer OTHER, SELFPAY ==
[2023-12-18 07:32] LABS: MANUAL DIFF FLAG NO
[2023-12-18 07:54] LABS: Basophils Percent Auto 0.7 % (0-2); Eosinophils Absolute Auto 0.1 X10*3/uL (0.0-0.4); Eosinophils Percent Auto 2.3 % (0-4); Hematocrit 46.2 % (42.0-52.0); Hemoglobin 15.7 g/dl (14.0-18.0); Imm Gran Abs Auto 0.02 X10*3/uL (0.00-0.03); Imm Gran Pct Auto 0.3 % (0.0-0.4); Lymphocytes Absolute Auto 2.2 X10*3/uL (1.2-4.9); Lymphocytes Percent Auto 36.4 % (20-40); Mean Corpuscular Hemoglobin 30.2 pg (27.0-33.0); Mean Corpuscular Volume 88.8 fL (80.0-98.0); Mean Platelet Volume 9.9 fL (9.4-12.4); Monocytes Absolute Auto 0.5 X10*3/uL (0.1-1.2); Monocytes Percent Auto 7.8 % (2-11); Neutrophils Absolute Auto 3.2 x10*3/uL (2.0-8.3); Neutrophils Percent Auto 52.5 % (45-73); Platelet Count 169 X10*3/uL (160-400); Red Cell Distribution Width 12.2 % (11.0-16.0); White Blood Count 6.1 X10*3/uL (4.8-10.8)
[2023-12-18 08:05] LABS: Estimated Average Glucose 114 mg/dL; Hemoglobin A1C 137.4504 umol/L; Hemoglobin A1c % 5.6 % (<6.0); Total Hemoglobin (HGBA1C) 3680.4445 umol/L
[2023-12-18 08:07] LABS: Appearance Urine Clear; Color Urine Yellow; Glucose Urine UA Negative (Negative); Leukocyte Esterase Urine Negative (Negative); Nitrite Urine Negative (Negative); PH 5.5 (5.0-9.0); Urine Blood Negative (Negative); Urine Ketones Negative (Negative); Urine Protein Negative (Neg-Trace)
[2023-12-18 08:17] LABS: Alanine Aminotransferase 32 U/L (0-40); Albumin Level 4.3 g/dL (3.5-5.0); Alkaline Phosphatase 52 U/L (39-117); Anion Gap 12 (12-20); Aspartate Amino Transferase 23 U/L (5-37); Bilirubin Total 0.4 mg/dL (0.0-1.0); Blood Urea Nitrogen 13 mg/dL (9-16); Calcium 9.3 mg/dL (8.4-10.2); Carbon Dioxide 30 mmol/L (22-29); Chloride 104 mmol/L (96-108); Cholesterol 191 mg/dL (<200); Estimated Glomerular Filt Rate > 60; Glucose Fasting 106 mg/dL (60-99); HDL Cholesterol 44 mg/dL (>40); LDL Cholesterol Calculated 124 mg/dL (<100); Potassium 4.6 mmol/L (3.3-5.1); Sodium 141 mmol/L (135-145); Total Protein 7.2 g/dL (6.5-8.0); Triglycerides 119 mg/dL (<150)
== END 2023-12-18 07:05 | disposition home or self-care (01) ==
LOC: HO.LAB 07:04
PROVIDERS: PCP Internal Medicine; Visit Provider Internal Medicine
DX: D64.9 Anemia, unspecified (principal); E78.00 Pure hypercholesterolemia, unspecified; R73.01 Impaired fasting glucose; R30.0 Dysuria
CPT/HCPCS: 36415; 80053; 80061; 81003; 83036; 85025

== ENCOUNTER 2024-02-13 09:14 | Outpatient (AMB) | payer OTHER, SELFPAY ==
--- NOTE | 2024-02-13 09:20 | A.OFFPC_ITS ---
Vital Signs 02/13/24 09:21 Height 5 ft 8 in Weight 196 lb BMI 29.8 BP 130/82 Blood Pressure Location Lt brachial Position Sitting Pulse 76 Pulse Source Pulse Oximeter Pulse Oximetry (%) 98 Oxygen Delivery Method Room Air Intake Visit Reasons: hyperlipidemia, IFG Clerk Supervisor Required: No Accompanied by: Self / Same As Patient Allergies penicillin V Allergy (Unknown, Verified 02/13/24 09:46) seizures, seizure-in childhood Penicillins [PENICILLINS] Allergy (Unknown, Verified 02/13/24 09:46) SEIZURE Medication List - Last Reconciled 02/13/24 by Johnnie Miller MD baclofen 20 mg PO BEDTIME 90 days gabapentin 300 mg PO BEDTIME 90 days tramadol 50 mg PO Q6H PRN Tobacco use date assessed: 02/13/24 Dental Screening Dental Screen Date: 02/13/24 Did you have a dental visit in the last 12 months?: Yes Did you have a dental problem in the last 6 months where you did not have access to dental care?: No Was dental information given to patient?: Patient has dentist HPI hyperlipidemia, IFG HPI Details Patient comes in today for his follow up visit States that he has been experiencing increased pain over his lower back again lately Also relates (+) on and off pain in both wrists recently He denies any recent injury or trauma to his lower back or wrists States that he feels okay otherwise He denies any headaches or dizziness Denies any chest pains, no increased shortness of breath No nausea/vomiting, no abdominal pain No change in bowel habits noted Needs a couple of his Rx refilled He had his follow-up labs done a couple of months ago - to discuss his results [facility] Medical History Overweight (BMI 25.0-29.9) Obesity (BMI 30-39.9) Vitamin D deficiency Impaired fasting glucose Elevated LFTs Facet arthritis of lumbar region Pure hypercholesterolemia Cannabis withdrawal Insomnia Lumbar degenerative disc disease Surgical History History of hemilaminectomy History of hand surgery History of hemorrhoidectomy History of appendectomy Family History Father Hypertension Heart disease Mother Hypertension Diabetes Maternal Grandfather Leukemia Other Mental health problem Social History Housing: House Alcohol intake: current Alcohol intake frequency: holidays/special occasions only Patient Tobacco Use Status: Never used Tobacco e-Cigarette/Vaping Use: Never Used Second Hand Smoke Exposure: Yes Substance Use Type: Marijuana service: No Current occupational status: disabled Cognitive needs: No Hearing needs: No Vision needs: Yes Questionnaire PHQ-9 Over the last 2 weeks, how often have you been bothered by any of the following problems? 1. Little interest or pleasure in doing things: not at all 2. Feeling down, depressed, or hopeless: not at all 3. Trouble falling or staying asleep, or sleeping too much: not at all 4. Feeling tired or having little energy: not at all 5. Poor appetite or overeating: not at all 6. Feeling bad about yourself - or that you are a failure or have let yourself or your family down: not at all 7. Trouble concentrating on things, such as reading the newspaper or watching television: not at all 8. Moving or speaking so slowly that other people could have noticed. Or the opposite - being so fidgety or restless that you have been moving around a lot more than usual: not at all 9. Thoughts that you would be better off or of hurting yourself in some way: not at all Total score: 0 Depression Screening Interpretation: Negative Depression Screening Done: Yes 55985 - PHQ-9 Billing: Yes Source: Developed by Drs. Elías Davis, Kailee Muhammad, Kike Thurman and colleagues, with an educational cr from [employer]. Thrive Questionnaire Date Thrive assessed: 02/13/24 I am a: Patient What is your living situation today?: I have a steady place to live Within the past 12 months, did the food you bought not last and you didn't have the money to get more?: Never true Within the past 12 months, did you worry whether your food would run out before you got money to buy more?: Never true Do you have trouble paying for medicines?: No Do you have trouble getting transportation to medical appointments?: No Do you have trouble paying your heating and electricity bill?: No Do you have trouble taking care of your child, family member or friend?: No Do you have trouble with day-to-day activities such as bathing, preparing meals, shopping, managing finances, etc.?: No Are you currently unemployed and looking for a job?: No Are you interested in more education?: No Please select the resources that you would like help with: None Currently or been in a relationship where the following occur: No concerns reported THRIVE Score: 0 AUDIT C Alcohol Use Questionnaire (AUDIT-C) 1. How often do you have a drink containing alcohol?: Monthly or less 2. How many drinks containing alcohol do you have on a typical day when you are drinking?: 1 or 2 3. How often do you have six or more drinks on one occasion?: Never Total Score: 1 Score Reviewed/Action Taken: Yes THERESA-7 AMB Questionnaire THERESA-7 Date THERESA - 7 assessed: 02/13/24 Feeling nervous, anxious, or on edge: 0 = Not at all Not being able to stop or control worryin = Not at all Worrying too much about different things: 0 = Not at all Trouble relaxin = Not at all Being so restless that it is hard to sit still: 0 = Not at all Becoming easily annoyed or irritable: 0 = Not at all Feeling afraid as if something awful might happen: 0 = Not at all Total THERESA-7 score (0-4 normal; 5-9 mild; 10-14 moderate; 15-21 severe): 0 Source: Developed by Drs. Elías Davis, Kailee Muhammad, Kike Thurman and colleagues, with an educational cr from [employer]. Review of Systems Const Denies chills, Denies fatigue, Denies fever(s) and Denies headache(s) ENT Denies dysphagia, Denies dizziness, Denies otalgia, Denies headache(s), Denies neck pain, Denies odynophagia and Denies sore throat Card Denies chest pain, Denies palpitations and Denies dyspnea Resp Denies cough and Denies dyspnea GI Denies abdominal pain, Denies constipation, Denies dysphagia, Denies heartburn, Denies diarrhea, Denies nausea, Denies odynophagia and Denies vomiting Denies dysuria, Denies nocturia and Denies urinary frequency Musc Reports back pain (over the lower back - chronic but increasing lately), Reports arthralgias (on and off in both wrists) and Denies neck pain Skin/Breast Denies rash Neuro Denies dizziness and Denies headache(s) Endo Denies fatigue and Denies palpitations Physical exam (Primary Care) Vital Signs: Last Vital Signs Pulse 76 02/13/24 09:21 BP 130/82 02/13/24 09:21 Pulse Ox 98 02/13/24 09:21 Oxygen Delivery Method Room Air 02/13/24 09:21 BMI result Body Mass Index 29.8 Tobacco/Smoking Status: Tobacco use Status Tobacco use date assessed 02/13/24 02/13/24 09:28 Patient Tobacco Use Status Never used Tobacco 02/13/24 09:28 e-Cigarette/Vaping Use Never Used 02/13/24 09:28 PHQ-9: PHQ-9 Score PHQ-9: Total score 0 02/13/24 17:06 Depression Screening Interpretation: Negative Thrive Assessment: Date of Thrive Assessment Date Thrive assessed 02/13/24 02/13/24 09:28 Currently or been in a relationship where the following occur: No concerns reported Const General: no acute distress and alert HENMT Ears: TM's normal bilaterally and EAC's normal Throat: Yes posterior oropharynx normal and Yes tonsils normal (no TP congestion noted) Neck Neck: Yes no lymphadenopathy and Yes supple Thyroid: Thyroid normal Resp Auscultation: clear to auscultation bilaterally, no rales and no wheezes Cardio Rate: regular rate Rhythm: regular rhythm Heart sounds: no murmurs GI Palpation (GI): Soft to palpation and nontender Auscultation: normal bowel sounds Back/Spine/Pelvis Thoracic/Lumbar Spine: lumbar spinal tenderness Extrem General: Yes no clubbing, cyanosis or edema Results Reviewed Results Reviewed: Laboratory Tests 05/15/23 12/18/23 12/18/23 12:55 07:25 07:28 WBC 6.1 Hgb 15.7 Hct 46.2 Plt Count 169 Sodium 141 Potassium 4.6 Creatinine 0.82 Estimated GFR > 60 Random Glucose 95 Fasting Glucose 106 H Hemoglobin A1c % 5.6 Calcium 9.3 AST 23 ALT 32 Triglycerides 119 Cholesterol 191 LDL Cholesterol, Calc 124 H HDL Cholesterol 44 Ur Specific [place] 1.020 Urine Protein Negative Urine Glucose (UA) Negative Urine Blood Negative Urine Nitrite Negative Ur Leukocyte Esterase Negative Coding Level of Care Code Est Pt Level 4 (58763) Diagnoses Pure hypercholesterolemia E78.00 Impaired fasting glucose R73.01 Elevated LFTs R79.89 Vitamin D deficiency E55.9 Facet arthritis of lumbar region M47.816 Bilateral wrist pain M25.531; M25.532 Overweight (BMI 25.0-29.9) E66.3 Additional Codes PHQ-9 - 15668 - PHQ-9 Billing: Yes ([id number]) Assessment & Plan Assessment & Plan (1) Pure hypercholesterolemia: Code(s): E78.00 - Pure hypercholesterolemia, unspecified Category: Medical Plan: Results of his labs done a couple of months ago reviewed and discussed with patient - he is cautioned that his cholesterol numbers have increased slightly from previous Reinforced low cholesterol diet Patient would like to continue with diet modification alone for now and prefers not to take cholesterol-lowering medications if he can avoid them Will recheck his labs and fasting lipids in 4 months for follow up (2) Impaired fasting glucose: Code(s): R73.01 - Impaired fasting glucose Category: Medical Plan: His FBS was slightly elevated at 106 mg/dl but his HgbA1c is normal at 5.6% Reinforced low calorie/low carb diet, exercise as tolerated (3) Elevated LFTs: Code(s): R79.89 - Other specified abnormal findings of blood chemistry Category: Medical Plan: Improved and his LFTs have remained normal on his follow up labs done a couple of months ago He is again advised that this was most likely due to fatty liver changes related to his weight Reinforced low calorie diet/exercise as tolerated Will continue to monitor his LFTs regularly (4) Vitamin D deficiency: Code(s): E55.9 - Vitamin D deficiency, unspecified Category: Medical Plan: Continue OTC Vitamin D3 1000 units QOD (5) Facet arthritis of lumbar region: Code(s): M47.816 - Spondylosis without myelopathy or radiculopathy, lumbar region Category: Medical Plan: Reinforced activity and weight-lifting restrictions Follow up with [facility] as scheduled Has been reportedly advised that lumbar spine facet injections are no longer an option for him and he was recommended the option of a spinal cord stimulator, which patient has considered but decided against for now Continue Gabapentin 300 mg Q HS, Tramadol 50 mg every 6 hours PRN for pain and Baclofen 20 mg Q HS PRN - Rx refilled Due to his recently increased low back pain, will send him for repeat lumbar spine x-rays for further evaluation Will also refer him to Physical therapy for further evaluation and management (6) Bilateral wrist pain: Code(s): M25.531 - Pain in right wrist; M25.532 - Pain in left wrist Category: Medical Plan: Will send him for x-rays of both wrists for further evaluation Will also refer him to Physical therapy for further evaluation and management of his bilateral wrist pains (7) Overweight (BMI 25.0-29.9): Code(s): E66.3 - Overweight Category: Medical Plan: Reinforce diet/exercise as tolerated/his weight Plan Follow up in 4 months Orders: Orders XR lumbar spine 2-3V 02/14/24 M54.50 - Low back pain, unspecified PT Evaluation and Treatment 02/13/24 M25.531 - Pain in right wrist, M25.532 - Pain in left wrist, M54.50 - Low back pain, unspecified XR wrist RT min 3V 02/14/24 M25.531 - Pain in right wrist Vitamin D 25-OH Total 4 Months E55.9 - Vitamin D deficiency, unspecified Hemoglobin A1c 4 Months R73.01 - Impaired fasting glucose UA CC w/rflx Micro + Cult 4 Months R30.0 - Dysuria XR wrist LT min 3V 02/14/24 M25.532 - Pain in left wrist Comprehensive [place]. Panel Fast 4 Months E78.00 - Pure hypercholesterolemia, unspecified Lipid Panel 4 Months E78.00 - Pure hypercholesterolemia, unspecified TSH reflex Free T4 4 Months E78.00 - Pure hypercholesterolemia, unspecified Medications: Refilled baclofen 20 mg PO BEDTIME 90 days 90 tabs 3RF gabapentin 300 mg PO BEDTIME 90 days 90 caps 3RF
[2024-02-13 09:21] VITALS: BP 130/82; PULSE 76; O2SAT 98; BMI 29.8
== END 2024-02-13 10:00 | disposition home or self-care (01) ==
PROVIDERS: PCP Internal Medicine; Visit Provider Internal Medicine
DX: E78.00 Pure hypercholesterolemia, unspecified (principal); R73.01 Impaired fasting glucose; R79.89 Other specified abnormal findings of blood chemistry; E55.9 Vitamin D deficiency, unspecified; M47.816 Spondylosis without myelopathy or radiculopathy, lumbar region; M25.531 Pain in right wrist; M25.532 Pain in left wrist; E66.3 Overweight

== ENCOUNTER → 2024-02-13 09:14 | Outpatient (BNVA) | payer OTHER, SELFPAY | PROVIDERS: PCP Internal Medicine; Visit Provider Internal Medicine | DX: E78.00 Pure hypercholesterolemia, unspecified (principal); R73.01 Impaired fasting glucose; R79.89 Other specified abnormal findings of blood chemistry; E55.9 Vitamin D deficiency, unspecified; M47.816 Spondylosis without myelopathy or radiculopathy, lumbar region; M25.531 Pain in right wrist; M25.532 Pain in left wrist; E66.3 Overweight | CPT/HCPCS: 96127; 99212 ==

== ENCOUNTER 2024-02-14 11:49 | Outpatient (REF) | payer OTHER, SELFPAY | END 2024-02-14 11:50 | disposition home or self-care (01) | LOC: HO.XRAY 11:49 | PROVIDERS: PCP Internal Medicine; Visit Provider Internal Medicine | DX: M54.50 Low back pain, unspecified (principal); M25.531 Pain in right wrist; M25.532 Pain in left wrist | CPT/HCPCS: 72100; 73110 ==

== ENCOUNTER 2024-03-20 09:00 | Outpatient (RCR) | payer OTHER, SELFPAY ==
--- NOTE | 2024-03-14 11:57 | MHC.PT.EP ---
[facility] [place] Office [place] Office [place] Office [address] [phone] F: [phone] F: [phone] F: [phone] F: [phone] Physical Therapy Plan of Care Date of Evaluation: 03/14/24 Date of Surgery: 2013 Diagnosis: low back pain Assessment: Patient is a 48 year old R handed male who presents with s/s consistent with low back pain. He does not work and is on disability. Patient past medical history includes karlee laminectomy. Current impairments include pain, posture, ROM, strength, activity tolerance and functional mobility. 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 Patient is motivated with good rehab potential. Skilled PT will address impairments and functional limitations in order to achieve goals. Frequency and Duration: The patient will be seen 2x/week for 5 weeks Short Term Goals: I with HEP - 2 weeks AROM rotation 75% pain free - 3 weeks Able to walk/stand > 15 minutes without increased pain - 3 weeks Tip Printer Goals: TTP absent in b/l piriformis and lumbar paraspinals - 5 weeks Oswestry 20% or less - 5 weeks Pain with ADLs 3/10 or better - 5 weeks Treatment Plan: Modalities to reduce pain, spasms and effusion. Manual therapy to restore motion and function. Therapeutic exercise to improve strength and flexibility. Neuromuscular re-education for posture and balance. Therapeutic activities to return to functional activities of daily living. Electronically signed by: Jaime Tejada, PT Please sign and return to therapist. Thank you for your referral.
--- NOTE | 2024-05-29 13:50 | MHC.PT.DC ---
[facility] [place] Office [place] Office [place] Office [address] [phone] F: [phone] F: [phone] F: [phone] F: [phone] Physical Therapy Discharge Report Diagnosis: low back pain Date of Surgery: 2013 Date of Evaluation: 03/14/24 Date of Discharge: 04/19/24 Treatments to Date: 3 Cancellations to Date: No Shows to Date: Discharge Status: Independent with HEP Patient Elected to Stop Discharge Summary: 03/20; Pt performed HS in sitting no c/o pain. Pt L QL and PVM,s in spasm, elevated in appearance. appears to be L rotated in L/S. NV roll ITB. 03/18/24: pt experiencing shocks after supine HS. resolved with walking and stepper. progress cautiously NV and with HEP. Patient is a 48 year old R handed male who presents with s/s consistent with low back pain. He does not work and is on disability. Patient past medical history includes karlee laminectomy. Current impairments include pain, posture, ROM, strength, activity tolerance and functional mobility. 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 Patient is motivated with good rehab potential. Skilled PT will address impairments and functional limitations in order to achieve goals. Electronically signed by: Jaime Tejada, PT Please sign and return to therapist. Thank you for your referral.
== END 2024-05-29 13:50 | disposition home or self-care (01) ==
LOC: HO.PTCHIC 09:00
PROVIDERS: PCP Internal Medicine; Visit Provider Internal Medicine
DX: M54.50 Low back pain, unspecified (principal); M25.531 Pain in right wrist; M25.532 Pain in left wrist
CPT/HCPCS: 97110; 97140; 97162

== ENCOUNTER 2024-06-10 06:56 | Outpatient (REF) | payer OTHER, SELFPAY ==
[2024-06-10 08:12] LABS: Appearance Urine Clear; Color Urine Yellow; Glucose Urine UA Negative (Negative); Leukocyte Esterase Urine Negative (Negative); Nitrite Urine Negative (Negative); Specific Gravity - Urine 1.025 (1.005-1.025); Urine Blood Negative (Negative); Urine Ketones Negative (Negative); Urine Protein Negative (Neg-Trace)
[2024-06-10 08:42] LABS: Estimated Average Glucose 117 mg/dL; Hemoglobin A1C 154.7478 umol/L; Hemoglobin A1c % 5.7 % (<6.0); Total Hemoglobin (HGBA1C) 3938.8166 umol/L
[2024-06-10 08:52] LABS: Alanine Aminotransferase 56 U/L (0-40); Albumin Level 4.1 g/dL (3.5-5.0); Alkaline Phosphatase 43 U/L (39-117); Anion Gap 11 (12-20); Aspartate Amino Transferase 105 U/L (5-37); Bilirubin Total 0.3 mg/dL (0.0-1.0); Blood Urea Nitrogen 13 mg/dL (9-16); Calcium 8.7 mg/dL (8.4-10.2); Carbon Dioxide 26 mmol/L (22-29); Chloride 107 mmol/L (96-108); Cholesterol 181 mg/dL (<200); Estimated Glomerular Filt Rate > 60; Glucose Fasting 101 mg/dL (60-99); HDL Cholesterol 51 mg/dL (>40); LDL Cholesterol Calculated 114 mg/dL (<100); Potassium 3.9 mmol/L (3.3-5.1); Sodium 140 mmol/L (135-145); Triglycerides 84 mg/dL (<150)
[2024-06-10 09:10] LABS: TSH reflex Free T4 1.15 uIU/mL (0.32-4.0); Vitamin D 25-OH Total 37.5 ng/mL (>30)
== END 2024-06-10 06:57 | disposition home or self-care (01) ==
LOC: HO.LAB 06:56
PROVIDERS: PCP Internal Medicine; Visit Provider Internal Medicine
DX: E78.00 Pure hypercholesterolemia, unspecified (principal); R73.01 Impaired fasting glucose; R30.0 Dysuria; E55.9 Vitamin D deficiency, unspecified
CPT/HCPCS: 36415; 80053; 80061; 81003; 82306; 83036; 84443

== ENCOUNTER 2024-06-19 09:29 | Outpatient (AMB) | payer OTHER, SELFPAY ==
[2024-06-19 09:37] VITALS: BP 110/84; PULSE 79; O2SAT 98; BMI 29.6
--- NOTE | 2024-06-19 09:37 | A.OFFPC_ITS ---
Vital Signs 06/19/24 09:37 Height 5 ft 8 in Weight 195 lb BMI 29.6 BP 110/84 Blood Pressure Location Lt brachial Position Sitting Pulse 79 Pulse Source Pulse Oximeter Pulse Oximetry (%) 98 Oxygen Delivery Method Room Air Intake Visit Reasons: [facility] f/u Supervisor Coremaker Required: No Accompanied by: Self / Same As Patient Allergies penicillin V Allergy (Unknown, Verified 06/19/24 10:05) seizures, seizure-in childhood Penicillins [PENICILLINS] Allergy (Unknown, Verified 06/19/24 10:05) SEIZURE Medication List - Last Reconciled 06/19/24 by Johnnie Miller MD baclofen 20 mg PO BEDTIME 90 days gabapentin 300 mg PO BEDTIME 90 days tramadol 50 mg PO Q6H PRN Tobacco use date assessed: 06/19/24 Dental Screening Dental Screen Date: 06/19/24 Did you have a dental visit in the last 12 months?: Yes Did you have a dental problem in the last 6 months where you did not have access to dental care?: No Was dental information given to patient?: Patient has dentist HPI [facility] f/u HPI Details Patient comes in today for his follow up visit Relates that his lower back pain has improved with physical therapy over the past few months Adds that his previous wrist pains have mostly resolved and he did not need to get any physical therapy for his wrists Relates (+) on and off knee pain lately States that he feels okay otherwise He denies any headaches or dizziness Denies any chest pains, no increased shortness of breath No nausea/vomiting, no abdominal pain No change in bowel habits noted He had his follow-up labs done last week - to discuss his results [facility] Medical History (Updated 06/19/24 @ 10:40 by Johnnie Miller MD) Overweight (BMI 25.0-29.9) Vitamin D deficiency Impaired fasting glucose Elevated LFTs Facet arthritis of lumbar region Pure hypercholesterolemia Cannabis withdrawal Insomnia Lumbar degenerative disc disease Surgical History History of hemilaminectomy History of hand surgery History of hemorrhoidectomy History of appendectomy Family History Father Hypertension Heart disease Mother Hypertension Diabetes Maternal Grandfather Leukemia Other Mental health problem Social History Housing: House Alcohol intake: current Alcohol intake frequency: holidays/special occasions only Patient Tobacco Use Status: Never used Tobacco e-Cigarette/Vaping Use: Never Used Second Hand Smoke Exposure: Yes Substance Use Type: Marijuana service: No Current occupational status: disabled Cognitive needs: No Hearing needs: No Vision needs: Yes Questionnaire PHQ-9 Over the last 2 weeks, how often have you been bothered by any of the following problems? 1. Little interest or pleasure in doing things: not at all 2. Feeling down, depressed, or hopeless: not at all 3. Trouble falling or staying asleep, or sleeping too much: not at all 4. Feeling tired or having little energy: not at all 5. Poor appetite or overeating: not at all 6. Feeling bad about yourself - or that you are a failure or have let yourself or your family down: not at all 7. Trouble concentrating on things, such as reading the newspaper or watching television: not at all 8. Moving or speaking so slowly that other people could have noticed. Or the opposite - being so fidgety or restless that you have been moving around a lot more than usual: not at all 9. Thoughts that you would be better off or of hurting yourself in some way: not at all Total score: 0 Depression Screening Interpretation: Negative Depression Screening Done: Yes 42166 - PHQ-9 Billing: Yes Source: Developed by Drs. Elías Davis, Kailee Muhammad, Kike Thurman and colleagues, with an educational cr from [employer]. Thrive Questionnaire Date Thrive assessed: 06/19/24 I am a: Patient What is your living situation today?: I have a steady place to live Within the past 12 months, did the food you bought not last and you didn't have the money to get more?: Never true Within the past 12 months, did you worry whether your food would run out before you got money to buy more?: Never true Do you have trouble paying for medicines?: No Do you have trouble getting transportation to medical appointments?: No Do you have trouble paying your heating and electricity bill?: No Do you have trouble taking care of your child, family member or friend?: No Do you have trouble with day-to-day activities such as bathing, preparing meals, shopping, managing finances, etc.?: No Are you currently unemployed and looking for a job?: No Are you interested in more education?: No Please select the resources that you would like help with: None Currently or been in a relationship where the following occur: No concerns reported THRIVE Score: 0 AUDIT C Alcohol Use Questionnaire (AUDIT-C) 1. How often do you have a drink containing alcohol?: Monthly or less 2. How many drinks containing alcohol do you have on a typical day when you are drinking?: 1 or 2 3. How often do you have six or more drinks on one occasion?: Never Total Score: 1 Score Reviewed/Action Taken: Yes THERESA-7 AMB Questionnaire THERESA-7 Date THERESA - 7 assessed: 06/19/24 Feeling nervous, anxious, or on edge: 0 = Not at all Not being able to stop or control worryin = Not at all Worrying too much about different things: 0 = Not at all Trouble relaxin = Not at all Being so restless that it is hard to sit still: 0 = Not at all Becoming easily annoyed or irritable: 0 = Not at all Feeling afraid as if something awful might happen: 0 = Not at all Total THERESA-7 score (0-4 normal; 5-9 mild; 10-14 moderate; 15-21 severe): 0 Source: Developed by Drs. Elías Davis, Kailee Muhammad, Kike Thurman and colleagues, with an educational cr from [employer]. Review of Systems Const Denies chills, Denies fatigue, Denies fever(s) and Denies headache(s) ENT Denies dysphagia, Denies dizziness, Denies otalgia, Denies headache(s), Denies neck pain, Denies odynophagia and Denies sore throat Card Denies chest pain, Denies palpitations and Denies dyspnea Resp Denies chest congestion, Denies cough and Denies dyspnea GI Denies abdominal pain, Denies constipation, Denies dysphagia, Denies heartburn, Denies diarrhea, Denies nausea, Denies odynophagia and Denies vomiting Denies difficulty urinating, Denies dysuria, Denies nocturia and Denies urinary frequency Musc Reports back pain (over the lower back - chronic but improved somewhat with PT), Reports arthralgias (on and off in both knees; previous wrist pains have resolved) and Denies neck pain Skin/Breast Denies rash Neuro Denies dizziness and Denies headache(s) Endo Denies fatigue and Denies palpitations Physical exam (Primary Care) Vital Signs: Last Vital Signs Pulse 79 06/19/24 09:37 BP 110/84 06/19/24 09:37 Pulse Ox 98 06/19/24 09:37 Oxygen Delivery Method Room Air 06/19/24 09:37 BMI result Body Mass Index 29.6 Tobacco/Smoking Status: Tobacco use Status Tobacco use date assessed 06/19/24 06/19/24 09:44 Patient Tobacco Use Status Never used Tobacco 06/19/24 09:44 e-Cigarette/Vaping Use Never Used 06/19/24 09:44 PHQ-9: PHQ-9 Score PHQ-9: Total score 0 06/19/24 09:44 Depression Screening Interpretation: Negative Thrive Assessment: Date of Thrive Assessment Date Thrive assessed 06/19/24 06/19/24 09:44 Currently or been in a relationship where the following occur: No concerns reported Const General: no acute distress and alert HENMT Ears: TM's normal bilaterally and EAC's normal Throat: Yes posterior oropharynx normal and Yes tonsils normal (no TP congestion noted) Neck Neck: Yes supple and No lymphadenopathy Thyroid: Thyroid normal Resp Auscultation: clear to auscultation bilaterally, no rales and no wheezes Cardio Rate: regular rate Rhythm: regular rhythm Heart sounds: no murmurs GI Palpation (GI): Soft to palpation and nontender Auscultation: normal bowel sounds General: Yes no CVA tenderness Back/Spine/Pelvis Back: no CVA tenderness Thoracic/Lumbar Spine: lumbar spinal tenderness (mild) Skin Rashes: no rashes Extrem General: Yes no clubbing, cyanosis or edema Right lower extremity: knee Details: no tenderness Left lower extremity: knee Details: no tenderness Results Reviewed Results Reviewed: Laboratory Tests 12/18/23 06/10/24 06/10/24 07:25 07:05 07:07 Sodium 140 Potassium 3.9 Creatinine 0.81 Estimated GFR > 60 Fasting Glucose 101 H Hemoglobin A1c % 5.7 Calcium 8.7 D AST 23 105 H ALT 32 56 H Triglycerides 84 Cholesterol 181 LDL Cholesterol, Calc 114 H HDL Cholesterol 51 25-OH Vitamin D Total 37.5 TSH 1.15 Ur Specific [place] 1.025 Urine Protein Negative Urine Glucose (UA) Negative Urine Blood Negative Urine Nitrite Negative Ur Leukocyte Esterase Negative Coding Level of Care Code Est Pt Level 4 (52058) Diagnoses Pure hypercholesterolemia E78.00 Impaired fasting glucose R73.01 Elevated LFTs R79.89 Vitamin D deficiency E55.9 Facet arthritis of lumbar region M47.816 Pain in both knees, unspecified chronicity M25.561; M25.562 Chronicity: unspecified Overweight (BMI 25.0-29.9) E66.3 Additional Codes PHQ-9 - 94351 - PHQ-9 Billing: Yes ([id number]) Assessment & Plan Assessment & Plan (1) Pure hypercholesterolemia: Code(s): E78.00 - Pure hypercholesterolemia, unspecified Category: Medical Plan: Results of his labs done last week reviewed and discussed with patient - his cholesterol numbers have improved slightly from previous Reinforced low cholesterol diet Patient would like to continue with diet modification alone for now and prefers not to take cholesterol-lowering medications if he can avoid them Will recheck his labs and fasting lipids in 4 months for follow up (2) Impaired fasting glucose: Code(s): R73.01 - Impaired fasting glucose Category: Medical Plan: His FBS was normal at 101 mg/dl on his recent labs; HgbA1c was also normal at 5.7% Reinforced low calorie/low carb diet, exercise as tolerated (3) Elevated LFTs: Code(s): R79.89 - Other specified abnormal findings of blood chemistry Category: Medical Plan: Patient is cautioned that his LFTs have increased significantly from previous on his recent labs He admits to drinking some alcohol lately and also just before he went for his labs last week - recalls that he was celebrating his brother's birthday that weekend before he went for his labs Have cautioned him to avoid alcohol for now and to also avoid any Tylenol- containing meds; reminded that losing weight can also help He is advised that if his LFTs do not improve over the next few months, we will likely need to send him for a sonogram again for further evaluation Will continue to monitor his LFTs regularly (4) Vitamin D deficiency: Code(s): E55.9 - Vitamin D deficiency, unspecified Category: Medical Plan: Continue OTC Vitamin D3 1000 units QOD (5) Facet arthritis of lumbar region: Code(s): M47.816 - Spondylosis without myelopathy or radiculopathy, lumbar region Category: Medical Plan: Reinforced activity and weight-lifting restrictions Follow up with [facility] as scheduled Has been reportedly advised that lumbar spine facet injections are no longer an option for him and he was recommended to have a spinal cord stimulator placed instead, which patient has considered but decided against Repeat lumbar spine x-rays done a few months ago on 02/14/2024 revealed only mild multilevel degenerative changes Patient states that his low back pain has improved a lot with physical therapy over the past few months Continue Gabapentin 300 mg Q HS, Tramadol 50 mg every 6 hours PRN for pain and Baclofen 20 mg Q HS PRN (6) Knee pain, bilateral: Code(s): M25.561 - Pain in right knee; M25.562 - Pain in left knee Category: Medical Qualifiers: Chronicity: unspecified Qualified Code(s): M25.561 - Pain in right knee; M25.562 - Pain in left knee Plan: Patient reports on and off knee pain lately Knee x-rays done last year in April 2023 came back normal Have advised patient to try wearing some knee sleeve or brace PRN for support especially when he is going to be on his feet for prolonged periods of time Can consider referring him to orthopedics for further management if his knee symptoms persist or progress (7) Overweight (BMI 25.0-29.9): Code(s): E66.3 - Overweight Category: Medical Plan: Reinforced diet/exercise as tolerated/his weight Plan Follow up in 4 months Orders: Orders UA CC w/rflx Micro + Cult 4 Months R30.0 - Dysuria Complete Blood Count Auto Diff 4 Months D64.9 - Anemia, unspecified Comprehensive [place]. Panel Fast 4 Months E78.00 - Pure hypercholesterolemia, unspecified Lipid Panel 4 Months E78.00 - Pure hypercholesterolemia, unspecified TSH reflex Free T4 4 Months E78.00 - Pure hypercholesterolemia, unspecified Vitamin D 25-OH Total 4 Months E55.9 - Vitamin D deficiency, unspecified Liver Fibrosis Pnl 4 Months R79.89 - Other specified abnormal findings of blood chemistry
== END 2024-06-19 10:15 | disposition home or self-care (01) ==
LOC: HO.HMCH 09:29
PROVIDERS: PCP Internal Medicine; Visit Provider Internal Medicine
DX: E78.00 Pure hypercholesterolemia, unspecified (principal); R73.01 Impaired fasting glucose; R79.89 Other specified abnormal findings of blood chemistry; E55.9 Vitamin D deficiency, unspecified; M47.816 Spondylosis without myelopathy or radiculopathy, lumbar region; M25.561 Pain in right knee; M25.562 Pain in left knee; E66.3 Overweight

== ENCOUNTER → 2024-06-19 09:29 | Outpatient (BNVA) | payer OTHER, SELFPAY | PROVIDERS: PCP Internal Medicine; Visit Provider Internal Medicine | DX: E78.00 Pure hypercholesterolemia, unspecified (principal); R73.01 Impaired fasting glucose; R79.89 Other specified abnormal findings of blood chemistry; E55.9 Vitamin D deficiency, unspecified; M47.816 Spondylosis without myelopathy or radiculopathy, lumbar region; M25.561 Pain in right knee; M25.562 Pain in left knee; E66.3 Overweight; Z68.29 Body mass index [BMI] 29.0-29.9, adult; Z79.891 Long term (current) use of opiate analgesic | CPT/HCPCS: 96127; 99212 ==

== ENCOUNTER 2024-10-15 08:11 | Outpatient (REF) | payer OTHER, SELFPAY ==
--- OUTSIDE RECORDS SUMMARY | 2024-10-15 08:17 | XMS_ITS | Patient Health Record ---
Author Organization [facility] Address [address] [place] [id number] Care Team Providers Care Mild Disabilities Teacher Name Role Phone Pankaj Nunez M.D. Primary Care Provider Brittany Elías Jacinto Unavailable [phone] Allergies Allergen (clinical drug ingredient) Drug/Non Drug Allergy documented on EMR Reaction Allergy Type Onset Date Status Penicillin Unknown Drug Allergy Active Reason For Referral No Information Medications Medication SIG (Take, Route, Frequency, Duration) Notes Start Date End Date Status MoviPrep 100 GM as directed Orally a s directed for 1 dose 08/31/2012 Active Vitamin D 03/06/2024 03/06/2024 Active Melatonin 03/06/2024 03/06/2024 Active busPIRone HCl 03/06/2024 03/06/2024 Acti ve traZODone HCl 03/06/2024 03/06/2024 Acti ve Hyoscyamine Sulfate 0.125 MG 1-2 tablets Orally Take 30-60 minutes before a meal, and can use BID prn abdominal cramps/diarrhea for 30 days 08/31/2012 Active Problems Problem Type SNOMED Code ICD Code Onset Dates Problem Status W/U Status Risk Notes Problem Irritable bowel syndrome (564.1) Active confirmed Problem Diarrhea (93376907) Diarrhea (787.91) Active confirmed Plan Of Treatment Future Test Test Name Order Date COLONOSCOPY 08/31/2012 Insurance Providers Payer Name Payer Address Payer Phone Subscriber Number Group Number Insured Name Patient Relationship to Insured Coverage Start Date Coverage End Date [facility] [address] [place] [address] [id number] NOEMY JONES Self - patient is the insured Medical (General) History Medical History History ICD Code Denies SD,DM,CVA,Lung disease,renal dise ase Anxiety Surgical History Surgery Date(Month/Year) appendectomy 2010 hemorrhoidectomy 2011 left hand due to a fracture 2011
[2024-10-15 08:26] LABS: MANUAL DIFF FLAG NO
[2024-10-15 08:53] LABS: Hematocrit 44.5 % (42.0-52.0); Hemoglobin 15.4 g/dl (14.0-18.0); Imm Gran Abs Auto 0.01 X10*3/uL (0.00-0.03); Imm Gran Pct Auto 0.1 % (0.0-0.4); Lymphocytes Absolute Auto 2.7 X10*3/uL (1.2-4.9); Mean Corpuscular HGB Conc 34.6 g/dl (31.0-36.0); Mean Corpuscular Hemoglobin 29.8 pg (27.0-33.0); Mean Corpuscular Volume 86.1 fL (80.0-98.0); NRBC Abs Auto 0.000 X10*3/uL (0.0-0.012); NRBC Pct Auto 0.0 /100WBC (0.0-0.2); Platelet Count 185 X10*3/uL (160-400); Red Blood Count 5.17 X10*6/uL (4.60-5.80); White Blood Count 6.8 X10*3/uL (4.8-10.8)
[2024-10-15 09:35] LABS: Appearance Urine Clear; Glucose Urine UA Negative (Negative); PH 6.5 (5.0-9.0); Specific Gravity - Urine 1.020 (1.005-1.025)
[2024-10-15 10:36] LABS: Alanine Aminotransferase 27 U/L (0-40); Albumin Level 4.6 g/dL (3.5-5.0); Alkaline Phosphatase 53 U/L (39-117); Anion Gap 13 (12-20); Aspartate Amino Transferase 27 U/L (5-37); Blood Urea Nitrogen 13 mg/dL (9-16); Calcium 9.2 mg/dL (8.4-10.2); Carbon Dioxide 29 mmol/L (22-29); Chloride 104 mmol/L (96-108); Cholesterol 202 mg/dL (<200); Estimated Glomerular Filt Rate > 60; HDL Cholesterol 45 mg/dL (>40); Potassium 4.0 mmol/L (3.3-5.1); Sodium 142 mmol/L (135-145); Total Protein 7.4 g/dL (6.5-8.0); Triglycerides 79 mg/dL (<150)
[2024-10-21 01:48] LABS: FIB-ALT 19 U/L (9-46); FIB-Alpha-2-Macroglobulin 108 mg/dL (106-279); FIB-Apolipoprotein A1 139 mg/dL (94-176); FIB-GGT 35 U/L (3-95); FIB-Haptoglobin 109 mg/dL (43-212); FIB-Total Bilirubin 0.4 mg/dL (0.2-1.2); Liver Fibrosis Score 0.09; Liver Fibrosis Stage F0; Nec Inflam Act Grade A0; Nec Inflam Act Score 0.05
== END 2024-10-15 08:12 | disposition home or self-care (01) ==
LOC: HO.LAB 08:11
PROVIDERS: Visit Provider Internal Medicine
DX: R30.0 Dysuria (principal); R79.89 Other specified abnormal findings of blood chemistry; E55.9 Vitamin D deficiency, unspecified; E78.00 Pure hypercholesterolemia, unspecified; D64.9 Anemia, unspecified
CPT/HCPCS: 36415; 80053; 80061; 81003; 81596; 82306; 84443; 85025

== ENCOUNTER 2024-10-31 09:33 | Outpatient (AMB) | payer OTHER, SELFPAY ==
--- NOTE | 2024-10-31 09:43 | MHC.PC.OV ---
Vital Signs 10/31/24 09:44 Height 5 ft 8 in Weight 186 lb 4 oz BMI 28.3 BP 130/80 Blood Pressure Location Lt brachial Position Sitting Pulse 75 Pulse Source Pulse Oximeter Temp 97.1 F Temp Source Temporal Artery Scan Pulse Oximetry (%) 99 Oxygen Delivery Method Room Air Intake Visit Reasons: hyperlipidemia, elevated LFTs Allergies penicillin V Allergy (Unknown, Verified 10/31/24 10:18) seizures, seizure-in childhood Penicillins (PENICILLINS) Allergy (Unknown, Verified 10/31/24 10:18) SEIZURE Medication List - Last Reconciled 10/31/24 by Johnnie Miller MD baclofen 20 mg PO BEDTIME 90 days gabapentin 300 mg PO BEDTIME 90 days tramadol 50 mg PO Q6H PRN Tobacco use date assessed: 10/31/24 Dental Screening Dental Screen Date: 10/31/24 Did you have a dental visit in the last 12 months?: Yes Did you have a dental problem in the last 6 months where you did not have access to dental care?: No Was dental information given to patient?: Patient has dentist HPI hyperlipidemia, elevated LFTs HPI Details Patient comes in today for his follow up visit States that he feels okay He denies any headaches or dizziness Denies any chest pains, no SOB No nausea/vomiting, no abdominal pain No change in bowel habits noted States that he has not drank any alcohol since his last visit after we advised him that his liver enzymes were elevated He has also been able to lose some weight over the past few months He had his follow up labs done a couple of weeks ago - to discuss his results [facility] Medical History Overweight (BMI 25.0-29.9) Vitamin D deficiency Impaired fasting glucose Elevated LFTs Facet arthritis of lumbar region Pure hypercholesterolemia Cannabis withdrawal Insomnia Lumbar degenerative disc disease Surgical History History of hemilaminectomy History of hand surgery History of hemorrhoidectomy History of appendectomy Family History Father Hypertension Heart disease Mother Hypertension Diabetes Maternal Grandfather Leukemia Other Mental health problem Social History Housing: House Alcohol intake: current Alcohol intake frequency: holidays/special occasions only Patient Tobacco Use Status: Never used Tobacco e-Cigarette/Vaping Use: Never Used Second Hand Smoke Exposure: Yes Substance Use Type: Marijuana service: No Current occupational status: disabled Cognitive needs: No Hearing needs: No Vision needs: Yes Questionnaire PHQ-9 Over the last 2 weeks, how often have you been bothered by any of the following problems? 1. Little interest or pleasure in doing things: not at all 2. Feeling down, depressed, or hopeless: not at all 3. Trouble falling or staying asleep, or sleeping too much: not at all 4. Feeling tired or having little energy: not at all 5. Poor appetite or overeating: not at all 6. Feeling bad about yourself - or that you are a failure or have let yourself or your family down: not at all 7. Trouble concentrating on things, such as reading the newspaper or watching television: not at all 8. Moving or speaking so slowly that other people could have noticed. Or the opposite - being so fidgety or restless that you have been moving around a lot more than usual: not at all 9. Thoughts that you would be better off or of hurting yourself in some way: not at all Total score: 0 Depression Screening Interpretation: Negative Depression Screening Done: Yes 43597 - PHQ-9 Billing: Yes Source: Developed by Drs. Elías Davis, Kailee Muhammad, Kike Thurman and colleagues, with an educational cr from [employer] Thrive Questionnaire Date Thrive assessed: 06/19/24 I am a: Patient What is your living situation today?: I have a steady place to live Within the past 12 months, did the food you bought not last and you didn't have the money to get more?: Never true Within the past 12 months, did you worry whether your food would run out before you got money to buy more?: Never true Do you have trouble paying for medicines?: No Do you have trouble getting transportation to medical appointments?: No Do you have trouble paying your heating and electricity bill?: No Do you have trouble taking care of your child, family member or friend?: No Do you have trouble with day-to-day activities such as bathing, preparing meals, shopping, managing finances, etc.?: No Are you currently unemployed and looking for a job?: No Are you interested in more education?: No Please select the resources that you would like help with: None Currently or been in a relationship where the following occur: No concerns reported THRIVE Score: 0 AUDIT C Alcohol Use Questionnaire (AUDIT-C) 1. How often do you have a drink containing alcohol?: 2-4 times a month 2. How many drinks containing alcohol do you have on a typical day when you are drinking?: 1 or 2 3. How often do you have six or more drinks on one occasion?: Never Total Score: 2 Score Reviewed/Action Taken: Yes THERESA-7 AMB Questionnaire THERESA-7 Date THERESA - 7 assessed: 06/19/24 Feeling nervous, anxious, or on edge: 0 = Not at all Not being able to stop or control worryin = Not at all Worrying too much about different things: 0 = Not at all Trouble relaxin = Not at all Being so restless that it is hard to sit still: 0 = Not at all Becoming easily annoyed or irritable: 0 = Not at all Feeling afraid as if something awful might happen: 0 = Not at all Total THERESA-7 score (0-4 normal; 5-9 mild; 10-14 moderate; 15-21 severe): 0 Source: Developed by Drs. Elías Davis, Kailee Muhammad, Kike Thurman and colleagues, with an educational cr from [employer] Review of Systems Const Denies chills, Denies fatigue, Denies fever(s) and Denies headache(s) ENT Denies dysphagia, Denies dizziness, Denies otalgia, Denies headache(s), Denies neck pain, Denies odynophagia and Denies sore throat Card Denies chest pain, Denies palpitations and Denies dyspnea Resp Denies chest congestion, Denies cough and Denies dyspnea GI Denies abdominal pain, Denies constipation, Denies dysphagia, Denies heartburn, Denies diarrhea, Denies nausea, Denies odynophagia and Denies vomiting Denies difficulty urinating, Denies dysuria, Denies nocturia and Denies urinary frequency Musc Reports back pain (over the lower back - chronic but improved somewhat with PT), Reports arthralgias (on and off in both knees) and Denies neck pain Skin/Breast Denies rash Neuro Denies dizziness and Denies headache(s) Endo Denies fatigue and Denies palpitations Physical exam (Primary Care) Vital Signs: Last Vital Signs Temp 97.1 F 10/31/24 09:44 Pulse 75 10/31/24 09:44 BP 130/80 10/31/24 09:44 Pulse Ox 99 10/31/24 09:44 Oxygen Delivery Method Room Air 10/31/24 09:44 BMI result Body Mass Index 28.3 Tobacco/Smoking Status: Tobacco use Status Tobacco use date assessed 10/31/24 10/31/24 09:46 Patient Tobacco Use Status Never used Tobacco 10/31/24 09:46 e-Cigarette/Vaping Use Never Used 10/31/24 09:46 PHQ-9: PHQ-9 Score PHQ-9: Total score 0 10/31/24 10:27 Depression Screening Interpretation: Negative Thrive Assessment: Date of Thrive Assessment Date Thrive assessed 06/19/24 10/31/24 09:46 Currently or been in a relationship where the following occur: No concerns reported Const General: no acute distress and alert HENMT Ears: TM's normal bilaterally and EAC's normal Throat: Yes posterior oropharynx normal and Yes tonsils normal (no TP congestion noted) Neck Neck: Yes supple and No lymphadenopathy Thyroid: Thyroid normal Resp Auscultation: clear to auscultation bilaterally, no rales and no wheezes Cardio Rate: regular rate Rhythm: regular rhythm Heart sounds: no murmurs GI Palpation (GI): Soft to palpation and nontender Auscultation: normal bowel sounds General: Yes no CVA tenderness Back/Spine/Pelvis Back: no CVA tenderness Thoracic/Lumbar Spine: lumbar spinal tenderness (mild) Skin Rashes: no rashes Extrem General: Yes no clubbing, cyanosis or edema Right lower extremity: knee Details: no tenderness Left lower extremity: knee Details: no tenderness Results Reviewed Results Reviewed: Laboratory Tests 10/15/24 10/15/24 08:20 08:24 WBC 6.8 Hgb 15.4 Hct 44.5 Plt Count 185 Sodium 142 Potassium 4.0 Creatinine 0.94 Estimated GFR > 60 Fasting Glucose 101 H Calcium 9.2 AST 27 ALT 27 Liver Fibrosis Stage F0 Triglycerides 79 Cholesterol 202 H LDL Cholesterol, Calc 142 H HDL Cholesterol 45 25-OH Vitamin D Total 44.9 TSH 0.76 Ur Specific Anderson 1.020 Urine Protein Negative Urine Glucose (UA) Negative Urine Blood Negative Urine Nitrite Negative Ur Leukocyte Esterase Negative Coding Level of Care Code Est Pt Level 4 (85287) Diagnoses Pure hypercholesterolemia E78.00 Impaired fasting glucose R73.01 Elevated LFTs R79.89 Vitamin D deficiency E55.9 Facet arthritis of lumbar region M47.816 Pain in both knees, unspecified chronicity M25.561; M25.562 Chronicity: unspecified Overweight (BMI 25.0-29.9) E66.3 Additional Codes PHQ-9 - 68664 - PHQ-9 Billing: Yes ([id number]) Assessment & Plan Assessment & Plan (1) Pure hypercholesterolemia: Code(s): E78.00 - Pure hypercholesterolemia, unspecified Category: Medical Plan: Results of his labs done a couple of weeks ago reviewed and discussed with patient - patient is cautioned that his cholesterol numbers have increased significantly from previous Reinforced low cholesterol diet - he admits to not being compliant with his diet lately as he has been eating a lot of malay fries over the past couple of months Patient would like to continue with diet modification alone for now and prefers not to take cholesterol-lowering medications if he can avoid them Will recheck his labs and fasting lipids in 4 months for follow up (2) Impaired fasting glucose: Code(s): R73.01 - Impaired fasting glucose Category: Medical Plan: His FBS was at 101 mg/dl on his recent labs; HgbA1c was normal at 5.7% when previously checked Reinforced low calorie/low carb diet, exercise as tolerated (3) Elevated LFTs: Code(s): R79.89 - Other specified abnormal findings of blood chemistry Category: Medical Plan: Patient's LFTs were increased significantly a few months ago but they have reverted back to normal on his recent labs He admits to drinking some alcohol back then and also just before he went for his labs a few months ago as he was celebrating his brother's birthday then States that he has not had any alcohol to drink since his last visit His LFTs are back to normal on his recent labs and his liver fibrosis score was at F0 when checked recently Have cautioned him to continue to avoid alcohol as well as any Tylenol-containing meds; reminded that losing weight can also help Will continue to monitor his LFTs regularly (4) Vitamin D deficiency: Code(s): E55.9 - Vitamin D deficiency, unspecified Category: Medical Plan: Continue OTC Vitamin D3 1000 units QOD (5) Facet arthritis of lumbar region: Code(s): M47.816 - Spondylosis without myelopathy or radiculopathy, lumbar region Category: Medical Plan: Reinforced activity and weight-lifting restrictions Follow up with [facility] as scheduled He has reportedly been advised that lumbar spine facet injections are no longer an option for him and he was recommended to have a spinal cord stimulator placed instead, which patient has considered but decided against Repeat lumbar spine x-rays done a few months ago on 02/14/2024 revealed only mild multilevel degenerative changes Patient states that his low back pain has improved a lot with physical therapy over the past few months Continue Gabapentin 300 mg Q HS, Tramadol 50 mg every 6 hours PRN for pain and Baclofen 20 mg Q HS PRN (6) Knee pain, bilateral: Code(s): M25.561 - Pain in right knee; M25.562 - Pain in left knee Category: Medical Qualifiers: Chronicity: unspecified Qualified Code(s): M25.561 - Pain in right knee; M25.562 - Pain in left knee Plan: Patient reports on and off knee pain over the past year Knee x-rays done last year in April 2023 came back normal Have advised patient to try wearing some knee sleeve or brace PRN for support especially when he is going to be on his feet for prolonged periods of time Can consider referring him to orthopedics for further management if his knee symptoms persist or progress (7) Overweight (BMI 25.0-29.9): Code(s): E66.3 - Overweight Category: Medical Plan: Reinforced diet/exercise as tolerated/his weight Plan Follow up in 4 months Medications: Refilled baclofen 20 mg PO BEDTIME 90 tabs 3RF 90 days gabapentin 300 mg PO BEDTIME 90 caps 3RF 90 days
[2024-10-31 09:44] VITALS: BP 130/80; PULSE 75; TEMP 36.2; O2SAT 99; BMI 28.3
--- OUTSIDE RECORDS SUMMARY | 2024-10-31 10:38 | XMS_ITS | Patient Health Record ---
Author Organization [facility] Address [address] [place] [id number] Care Team Providers Care Ex Assistant/Program Director Name Role Phone Pankaj Nunez M.D. Primary Care Provider Brittany Elías Jacinto Unavailable [phone] Allergies Allergen (clinical drug ingredient) Drug/Non Drug [...] Status Risk Notes Problem Irritable bowel syndrome (67914986) Irritable bowel syndrome (564.1) Active confirmed Problem Diarrhea (36727256) Diarrhea (787.91) Active confirmed Plan Of Treatment Future Test Test Name Order Date COLONOSCOPY 08/31/2012 Insurance Providers Payer Name Payer Address Payer Phone Subscriber Number Group Number Insured Name Patient Relationship to Insured Coverage Start Date Coverage End Date [facility] [address] [place] [address] [phone] [id number] NOEMY JONES Self - patient is the insured Medical (General) History Medical History History ICD Code Denies [place],DM,CVA,Lung disease,renal dise ase Anxiety Surgical History Surgery Date(Month/Year) appendectomy 2010 hemorrhoidectomy 2011 left hand due to a fracture 2011
== END 2024-10-31 10:29 | disposition home or self-care (01) ==
LOC: HO.HMCH 09:33
PROVIDERS: PCP Internal Medicine; Visit Provider Internal Medicine
DX: E78.00 Pure hypercholesterolemia, unspecified (principal); R73.01 Impaired fasting glucose; R79.89 Other specified abnormal findings of blood chemistry; E55.9 Vitamin D deficiency, unspecified; M47.816 Spondylosis without myelopathy or radiculopathy, lumbar region; M25.561 Pain in right knee; M25.562 Pain in left knee; E66.3 Overweight

== ENCOUNTER → 2024-10-31 09:33 | Outpatient (BNVA) | payer OTHER, SELFPAY | PROVIDERS: PCP Internal Medicine; Visit Provider Internal Medicine | DX: R73.01 Impaired fasting glucose (principal); E78.00 Pure hypercholesterolemia, unspecified; R79.89 Other specified abnormal findings of blood chemistry; E55.9 Vitamin D deficiency, unspecified; M47.816 Spondylosis without myelopathy or radiculopathy, lumbar region; M25.561 Pain in right knee; M25.562 Pain in left knee; E66.3 Overweight; Z68.28 Body mass index [BMI] 28.0-28.9, adult | CPT/HCPCS: 96127; 99212 ==

== ENCOUNTER 2025-02-28 08:13 | Outpatient (REF) | payer OTHER, SELFPAY ==
--- OUTSIDE RECORDS SUMMARY | 2025-02-28 08:16 | XMS_ITS | Patient Health Record ---
Author Organization [facility] Address [address] [place] [id number] Care Team Providers Care Retail Clerk Name Role Phone Pankaj Nunez M.D. Primary Care Provider Brittany andrew Marcus Elías Unavailable [phone] Allergies Allergen (clinical drug ingredient) Drug/Non Drug Allergy documented on EMR Reaction Allergy Type Onset Date Status Penicillin Unknown Drug Allergy Active Reason For Referral No Information Medications Medication SIG (Take, Route, Frequency, Duration) Notes Start Date End Date Status MoviPrep 100 GM Solution Reconstituted as directed Orally as directed; Duration: 1 dose 08/31/2012 Active Vitamin D Active Melatonin Active busPIRone HCl Acti ve traZODone HCl Acti ve Hyoscyamine Sulfate 0.125 MG Tablet 1-2 tablets Orally Take 30-60 minutes before a meal, and can use BID prn abdominal cramps/diarrhea; Duration: 30 days 08/31/2012 Active Social History Social History Additional Details Category Social Info Options Details Miscellaneous: Marital status: engaged Occupation: [employer] in [employer] in [employer]. Section Notes: Nonsmoker; no sig. alcohol Problems Problem Type SNOMED Code ICD Code Onset Dates Problem Status W/U Status Risk Notes Problem Irritable bowel syndrome (11581619) Irritable bowel syndrome (564.1) Active confirmed Problem Diarrhea (52385613) Diarrhea (787.91) Active confirmed Plan Of Treatment Future Test Test Name Order Date COLONOSCOPY 08/31/2012 Insurance Providers Payer Name Payer Address Payer Phone Subscriber Number Group Number Insured Name Patient Relationship to Insured Coverage Start Date Coverage End Date [facility] [address] [place] [address] [id number] NOEMY JONES Self - patient is the insured Medical (General) History Medical History History ICD Code Denies [place],DM,CVA,Lung disease,renal dise ase Anxiety Surgical History Surgery Date(Month/Year) appendectomy 2010 hemorrhoidectomy 2011 left hand due to a fracture 2011
[2025-02-28 08:30] LABS: MANUAL DIFF FLAG NO
[2025-02-28 09:33] LABS: Hematocrit 46.5 % (42.0-52.0); Hemoglobin 15.4 g/dl (14.0-18.0); Imm Gran Abs Auto 0.04 X10*3/uL (0.00-0.03); Imm Gran Pct Auto 0.6 % (0.0-0.4); Lymphocytes Absolute Auto 3.0 X10*3/uL (1.2-4.9); Mean Corpuscular HGB Conc 33.1 g/dl (31.0-36.0); Mean Corpuscular Hemoglobin 29.2 pg (27.0-33.0); Mean Corpuscular Volume 88.2 fL (80.0-98.0); NRBC Abs Auto 0.000 X10*3/uL (0.0-0.012); NRBC Pct Auto 0.0 /100WBC (0.0-0.2); Platelet Count 187 X10*3/uL (160-400); Red Blood Count 5.27 X10*6/uL (4.60-5.80); White Blood Count 7.3 X10*3/uL (4.8-10.8)
[2025-02-28 10:09] LABS: Appearance Urine Clear; Glucose Urine UA Negative (Negative); PH 7.0 (5.0-9.0); Specific Gravity - Urine 1.020 (1.005-1.025)
[2025-02-28 10:15] LABS: Alanine Aminotransferase 40 U/L (0-40); Albumin Level 4.4 g/dL (3.5-5.0); Alkaline Phosphatase 53 U/L (39-117); Anion Gap 10 (12-20); Aspartate Amino Transferase 25 U/L (5-37); Blood Urea Nitrogen 19 mg/dL (9-16); Calcium 8.9 mg/dL (8.4-10.2); Carbon Dioxide 28 mmol/L (22-29); Chloride 106 mmol/L (96-108); Cholesterol 193 mg/dL (<200); Estimated Glomerular Filt Rate > 60; HDL Cholesterol 50 mg/dL (>40); Potassium 3.9 mmol/L (3.3-5.1); Sodium 140 mmol/L (135-145); Total Protein 7.1 g/dL (6.5-8.0); Triglycerides 65 mg/dL (<150)
== END 2025-02-28 08:14 | disposition home or self-care (01) ==
LOC: HO.LAB 08:13
PROVIDERS: PCP Internal Medicine; Visit Provider Internal Medicine
DX: R73.01 Impaired fasting glucose (principal); E78.00 Pure hypercholesterolemia, unspecified; D64.9 Anemia, unspecified; R30.0 Dysuria; E55.9 Vitamin D deficiency, unspecified
CPT/HCPCS: 36415; 80053; 80061; 81003; 82306; 83036; 84443; 85025

== ENCOUNTER 2025-03-05 09:44 | Outpatient (AMB) | payer OTHER, SELFPAY ==
[2025-03-05 09:57] VITALS: BP 116/78; PULSE 91; O2SAT 98; BMI 29.4
--- NOTE | 2025-03-05 09:57 | MHC.PC.OV ---
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 Accompanied by: Self / Same As Patient Allergies penicillin V Allergy (Unknown, Verified 03/05/25 10:52) seizures, seizure-in childhood Penicillins (PENICILLINS) Allergy (Unknown, Verified 03/05/25 10:52) SEIZURE Medication List - Last Reconciled 03/05/25 by Johnnie Miller MD baclofen 20 mg PO BEDTIME 90 days gabapentin 300 mg PO BEDTIME 90 days tramadol 50 mg PO Q6H PRN Tobacco use date assessed: 03/05/25 Dental Screening Dental Screen Date: 03/05/25 Did you have a dental visit in the last 12 months?: Yes Did you have a dental problem in the last 6 months where you did not have access to dental care?: No Was dental information given to patient?: Patient has dentist HPI hyperlipidemia HPI Details Patient is a 49 year old male presenting for follow-up and management of chronic conditions. He reports recent weight gain over the holidays, which he attributes to being sedentary. He has a history of back pain with spasms and knee pain, which are exacerbated by weight gain. He reports his knees are doing okay at present. In terms of lifestyle modifications, he has stopped drinking whiskey and has drastically cut down on gee consumption. He denies any headaches or dizziness Denies any chest pains, no increased SOB No nausea/vomiting, no abdominal pain No change in bowel habits noted Needs a couple of his Rx refilled He had his follow up labs done yesterday - to discuss his results His hemoglobin A1c has remained stable at 5.7%. His cholesterol, which was previously elevated, has improved, with a 12-point drop in his LDL from 142 to 130. [facility] Medical History Overweight (BMI 25.0-29.9) Vitamin D deficiency Impaired fasting glucose Elevated LFTs Facet arthritis of lumbar region Pure hypercholesterolemia Cannabis withdrawal Insomnia Lumbar degenerative disc disease Surgical History History of hemilaminectomy History of hand surgery History of hemorrhoidectomy History of appendectomy Family History Father Hypertension Heart disease Mother Hypertension Diabetes Maternal Grandfather Leukemia Other Mental health problem Social History Housing: House Alcohol intake: current Alcohol intake frequency: holidays/special occasions only Patient Tobacco Use Status: Never used Tobacco e-Cigarette/Vaping Use: Never Used Second Hand Smoke Exposure: Yes Substance Use Type: Marijuana service: No Current occupational status: disabled Cognitive needs: No Hearing needs: No Vision needs: Yes Questionnaire PHQ-9 Over the last 2 weeks, how often have you been bothered by any of the following problems? 1. Little interest or pleasure in doing things: not at all 2. Feeling down, depressed, or hopeless: not at all 3. Trouble falling or staying asleep, or sleeping too much: not at all 4. Feeling tired or having little energy: not at all 5. Poor appetite or overeating: not at all 6. Feeling bad about yourself - or that you are a failure or have let yourself or your family down: not at all 7. Trouble concentrating on things, such as reading the newspaper or watching television: not at all 8. Moving or speaking so slowly that other people could have noticed. Or the opposite - being so fidgety or restless that you have been moving around a lot more than usual: not at all 9. Thoughts that you would be better off or of hurting yourself in some way: not at all Total score: 0 Depression Screening Interpretation: Negative Depression Screening Done: Yes 70576 - PHQ-9 Billing: Yes Source: Developed by Drs. Elías Davis, Kailee Muhammad, Kike Thurman and colleagues, with an educational cr from [employer]. Thrive Questionnaire Date Thrive assessed: 03/05/25 What is your living situation today?: I have a steady place to live Within the past 12 months, did the food you bought not last and you didn't have the money to get more?: Never true Within the past 12 months, did you worry whether your food would run out before you got money to buy more?: Never true Do you have trouble paying for medicines?: No Do you have trouble getting transportation to medical appointments?: No Do you have trouble paying your heating and electricity bill?: No Do you have trouble taking care of your child, family member or friend?: No Do you have trouble with day-to-day activities such as bathing, preparing meals, shopping, managing finances, etc.?: No Are you currently unemployed and looking for a job?: No Are you interested in more education?: No Please select the resources that you would like help with: None Currently or been in a relationship where the following occur: No concerns reported THRIVE Score: 0 AUDIT C Alcohol Use Questionnaire (AUDIT-C) 1. How often do you have a drink containing alcohol?: 2-4 times a month 2. How many drinks containing alcohol do you have on a typical day when you are drinking?: 1 or 2 3. How often do you have six or more drinks on one occasion?: Never Total Score: 2 Score Reviewed/Action Taken: Yes THERESA-7 AMB Questionnaire THERESA-7 Date THERESA - 7 assessed: 03/05/25 Feeling nervous, anxious, or on edge: 0 = Not at all Not being able to stop or control worryin = Not at all Worrying too much about different things: 0 = Not at all Trouble relaxin = Not at all Being so restless that it is hard to sit still: 0 = Not at all Becoming easily annoyed or irritable: 0 = Not at all Feeling afraid as if something awful might happen: 0 = Not at all Total THERESA-7 score (0-4 normal; 5-9 mild; 10-14 moderate; 15-21 severe): 0 Source: Developed by Drs. Elías Davis, Kailee Muhammad, Kike Thurman and colleagues, with an educational cr from [employer]. Review of Systems Const Denies chills, Denies fatigue, Denies fever(s) and Denies headache(s) ENT Denies dysphagia, Denies dizziness, Denies otalgia, Denies headache(s), Denies neck pain, Denies odynophagia and Denies sore throat Card Denies chest pain, Denies palpitations and Denies dyspnea Resp Denies chest congestion, Denies cough and Denies dyspnea GI Denies abdominal pain, Denies constipation, Denies dysphagia, Denies heartburn, Denies diarrhea, Denies nausea, Denies odynophagia and Denies vomiting Denies difficulty urinating, Denies dysuria, Denies nocturia and Denies urinary frequency Musc Reports back pain (over the lower back - chronic but improved somewhat with PT), Reports arthralgias (on and off in both knees) and Denies neck pain Skin/Breast Denies rash Neuro Denies dizziness and Denies headache(s) Endo Denies fatigue and Denies palpitations Physical exam (Primary Care) Vital Signs: Last Vital Signs Pulse 91 03/05/25 09:57 BP 116/78 03/05/25 09:57 Pulse Ox 98 03/05/25 09:57 Oxygen Delivery Method Room Air 03/05/25 09:57 BMI result Body Mass Index 29.4 Tobacco/Smoking Status: Tobacco use Status Tobacco use date assessed 03/05/25 03/05/25 09:59 Patient Tobacco Use Status Never used Tobacco 03/05/25 09:59 e-Cigarette/Vaping Use Never Used 03/05/25 09:59 PHQ-9: PHQ-9 Score PHQ-9: Total score 0 03/05/25 09:59 Depression Screening Interpretation: Negative Thrive Assessment: Date of Thrive Assessment Date Thrive assessed 03/05/25 03/05/25 09:59 Currently or been in a relationship where the following occur: No concerns reported Const General: no acute distress and alert HENMT Ears: TM's normal bilaterally and EAC's normal Throat: Yes posterior oropharynx normal and Yes tonsils normal (no TP congestion noted) Neck Neck: Yes supple and No lymphadenopathy Thyroid: Thyroid normal Resp Auscultation: clear to auscultation bilaterally, no rales and no wheezes Cardio Rate: regular rate Rhythm: regular rhythm Heart sounds: no murmurs GI Palpation (GI): Soft to palpation and nontender Auscultation: normal bowel sounds General: Yes no CVA tenderness Back/Spine/Pelvis Back: no CVA tenderness Thoracic/Lumbar Spine: lumbar spinal tenderness (mild) Skin Rashes: no rashes Extrem General: Yes no clubbing, cyanosis or edema Right lower extremity: knee Details: no tenderness Left lower extremity: knee Details: no tenderness Results Reviewed Results Reviewed: Laboratory Tests 02/28/25 02/28/25 08:24 08:29 WBC 7.3 Hgb 15.4 Hct 46.5 Plt Count 187 Sodium 140 Potassium 3.9 Creatinine 0.87 Estimated GFR > 60 Fasting Glucose 104 H Hemoglobin A1c % 5.7 Calcium 8.9 AST 25 ALT 40 Triglycerides 65 Cholesterol 193 LDL Cholesterol, Calc 130 H HDL Cholesterol 50 25-OH Vitamin D Total 37.9 TSH 0.47 Ur Specific [place] 1.020 Urine Protein Negative Urine Glucose (UA) Negative Urine Blood Negative Urine Nitrite Negative Ur Leukocyte Esterase Negative Coding Level of Care Code Est Pt Level 4 (44423) Diagnoses Pure hypercholesterolemia E78.00 Impaired fasting glucose R73.01 Elevated LFTs R79.89 Vitamin D deficiency E55.9 Facet arthritis of lumbar region M47.816 Pain in both knees, unspecified chronicity M25.561; M25.562 Chronicity: unspecified Overweight (BMI 25.0-29.9) E66.3 Additional Codes PHQ-9 - 81650 - PHQ-9 Billing: Yes ([id number]) Assessment & Plan Assessment & Plan (1) Pure hypercholesterolemia: Code(s): E78.00 - Pure hypercholesterolemia, unspecified Category: Medical Plan: Results of his labs done a few days ago reviewed and discussed with patient Reinforced low cholesterol diet Patient would like to continue with diet modification alone for now and prefers not to take cholesterol-lowering medications if he can avoid them Will recheck his labs and fasting lipids in 4 months for follow up (2) Impaired fasting glucose: Code(s): R73.01 - Impaired fasting glucose Category: Medical Plan: His FBS was at 104 mg/dl on his recent labs; HgbA1c remains normal at 5.7%, the same as it was earlier this year Reinforced low calorie/low carb diet, exercise as tolerated (3) Elevated LFTs: Code(s): R79.89 - Other specified abnormal findings of blood chemistry Category: Medical Plan: Patient's LFTs were increased significantly earlier this year but they have reverted back to normal on his previous labs and have remained normal on his labs done last week He admits to drinking some alcohol back then but he has since stopped; states that he has not had any alcohol to drink in several months now His liver fibrosis score was at F0 when checked a few months ago Have cautioned him again to continue to avoid alcohol as well as any Tylenol-containing meds; reminded that losing weight can also help Will continue to monitor his LFTs regularly (4) Vitamin D deficiency: Code(s): E55.9 - Vitamin D deficiency, unspecified Category: Medical Plan: Continue OTC Vitamin D3 1000 units QOD (5) Facet arthritis of lumbar region: Code(s): M47.816 - Spondylosis without myelopathy or radiculopathy, lumbar region Category: Medical Plan: Reinforced activity and weight-lifting restrictions Follow up with [facility] as scheduled He has reportedly been advised that lumbar spine facet injections are no longer an option for him and he was recommended to have a spinal cord stimulator placed instead, which patient has considered but decided against Repeat lumbar spine x-rays done a few months ago on 02/14/2024 revealed only mild multilevel degenerative changes Patient states that his low back pain has improved a lot with physical therapy over the past few months Continue Gabapentin 300 mg Q HS, Tramadol 50 mg every 6 hours PRN for pain and Baclofen 20 mg Q HS PRN- Rx refilled (6) Knee pain, bilateral: Code(s): M25.561 - Pain in right knee; M25.562 - Pain in left knee Category: Medical Qualifiers: Chronicity: unspecified Qualified Code(s): M25.561 - Pain in right knee; M25.562 - Pain in left knee Plan: Patient reports on and off knee pain over the past year Knee x-rays done last year in April 2023 came back normal Have advised patient to try wearing some knee sleeve or brace PRN for support especially when he is going to be on his feet for prolonged periods of time Can consider referring him to orthopedics for further management if his knee symptoms persist or progress (7) Overweight (BMI 25.0-29.9): Code(s): E66.3 - Overweight Category: Medical Plan: Reinforced diet/exercise as tolerated/his weight - he has gained some weight since his last visit Plan Follow up in 4 months Orders: Orders Complete Blood Count Auto Diff 4 Months D64.9 - Anemia, unspecified Comprehensive [place]. Panel Fast 4 Months E78.00 - Pure hypercholesterolemia, unspecified Lipid Panel 4 Months E78.00 - Pure hypercholesterolemia, unspecified Microalbumin, Random (w Creat) 4 Months E11.9 - Type 2 diabetes mellitus without complications TSH reflex Free T4 4 Months E78.00 - Pure hypercholesterolemia, unspecified UA CC w/rflx Micro + Cult 4 Months R30.0 - Dysuria Hemoglobin A1c 4 Months R73.01 - Impaired fasting glucose Vitamin D 25-OH Total 4 Months E55.9 - Vitamin D deficiency, unspecified Medications: Refilled baclofen 20 mg PO BEDTIME 90 tabs 3RF 90 days gabapentin 300 mg PO BEDTIME 90 caps 3RF 90 days
--- OUTSIDE RECORDS SUMMARY | 2025-03-05 10:21 | XMS_ITS | Patient Health Record ---
Author Organization [facility] Address [address] [place] [id number] Care Team Providers Care Washing Tub Operator Name Role Phone Pankaj Nunez M.D. Primary Care Provider Brittany andrew Marcus Elías Unavailable [phone] Allergies Allergen (clinical drug ingredient) Drug/Non Drug [...] Options Details Miscellaneous: Marital status: engaged Occupation: [place] in an in [employer]. Section Notes: Nonsmoker; no sig. alcohol Problems Problem Type SNOMED Code ICD Code Onset Dates Problem Status W/U Status Risk Notes Problem Irritable bowel syndrome (45464682) Irritable bowel syndrome (564.1) Active confirmed Problem Diarrhea (85289756) Diarrhea (787.91) Active confirmed Plan Of Treatment Future Test Test Name Order Date COLONOSCOPY 08/31/2012 Insurance Providers Payer Name Payer Address Payer Phone Subscriber Number Group Number Insured Name Patient Relationship to Insured Coverage Start Date Coverage End Date [facility] [address] [place] [address] [id number] NOEMY JONES Self - patient is the insured Medical (General) History Medical History History ICD Code Denies [place],DM,CVA,Lung disease,renal dise ase Anxiety Surgical History Surgery Date(Month/Year) appendectomy 2010 hemorrhoidectomy 2011 left hand due to a fracture 2011
== END 2025-03-05 11:01 | disposition home or self-care (01) ==
LOC: HO.HMCH 09:45
PROVIDERS: PCP Internal Medicine; Visit Provider Internal Medicine
DX: E78.00 Pure hypercholesterolemia, unspecified (principal); R73.01 Impaired fasting glucose; R79.89 Other specified abnormal findings of blood chemistry; E55.9 Vitamin D deficiency, unspecified; M47.816 Spondylosis without myelopathy or radiculopathy, lumbar region; M25.561 Pain in right knee; M25.562 Pain in left knee; E66.3 Overweight

== ENCOUNTER → 2025-03-05 09:44 | Outpatient (BNVA) | payer OTHER, SELFPAY | PROVIDERS: PCP Internal Medicine; Visit Provider Internal Medicine | DX: E78.00 Pure hypercholesterolemia, unspecified (principal); R73.01 Impaired fasting glucose; R79.89 Other specified abnormal findings of blood chemistry; E55.9 Vitamin D deficiency, unspecified; M47.816 Spondylosis without myelopathy or radiculopathy, lumbar region; M25.561 Pain in right knee; M25.562 Pain in left knee; E66.3 Overweight; Z13.31 Encounter for screening for depression; Z13.39 Encounter for screening examination for other mental health and behavioral disorders | CPT/HCPCS: 96127; 99212 ==